=== PATIENT | female | born 1975 | race African-American/Black ===

== ENCOUNTER → 2017-11-20 | Outpatient (CLI) | payer MEDICARE, OTHER ==
--- NOTE | 2017-11-20 15:20 | NM ---
EXAMINATION TYPE: NM hepatobiliary w CCK DATE OF EXAM: 11/20/2017 COMPARISON: NONE HISTORY: Epigastric pain. TECHNIQUE: After the intravenous administration of 4.92 mCi Tc 99m Mebrofenin hepatobiliary scintigra phy is performed. Immediate images post injection. FINDINGS: There is satisfactory initial accumulation of tracer by the liver. The gallbladder is visualized wit hin 6 minutes. The small bowel activity is noted within 56 minutes. At one hour CCK was administere d, patient was injected with 2.8 mcg of Kinevac, and gallbladder ejection fraction is calculated at 8 9 %, hypercontractile. Therefore there is no scintigraphic evidence of cystic or common bile duct ob struction to suggest acute cholecystitis or gallbladder dyskinesia. IMPRESSION: 1. No scintigraphic evidence of acute or chronic cholecystitis. 2. Hypercontractile gallbladder with elevated ejection fraction of 89%.
== END ==
LOC: RADNMMAIN 12:55
PROVIDERS: ATTEND Surgery
DX: R93.3 Abnormal findings on diagnostic imaging of other parts of digestive tract (principal)
CPT/HCPCS: 78227; A9537; J2805

== ENCOUNTER → 2017-11-25 | Outpatient (CLI) | payer MEDICARE, OTHER ==
[2017-11-25 10:30] LABS: Basophils % (A) 0 %; Eosinophils % (A) 1 %; HCT 43.1 % (34.0-46.0); HGB 13.7 gm/dL (11.4-16.0); Lymphocytes % (A) 32 %; MCH 26.1 pg (25.0-35.0); MCHC 31.8 g/dL (31.0-37.0); MCV 82.1 fL (80.0-100.0); Mean Platelet Volume 7.4; Monocytes # (A) 0.2 k/uL (0-1.0); Monocytes % (A) 7 %; Neutrophils # (A) 1.7 k/uL (1.3-7.7); Neutrophils % (A) 57 %; Platelet Count 211 k/uL (150-450); RBC 5.26 m/uL (3.80-5.40); RDW 14.5 % (11.5-15.5)
[2017-11-25 11:06] LABS: Potassium 4.4 mmol/L (3.5-5.1)
== END | disposition home or self-care (01) ==
LOC: LABPAT 09:56
PROVIDERS: ATTEND Obstetrics & Gynecology Obstetrics
DX: Z01.812 Encounter for preprocedural laboratory examination (principal); D64.9 Anemia, unspecified; D25.9 Leiomyoma of uterus, unspecified; N92.0 Excessive and frequent menstruation with regular cycle; I10 Essential (primary) hypertension
CPT/HCPCS: 36415; 80051; 82565; 84520; 85025; 87077; 87086; 87186

== ENCOUNTER 2017-12-03 05:47 | Day surgery (SDC) | payer MEDICARE, OTHER ==
[2017-11-25 12:30] VITALS: BMI 48.4
--- NOTE | 2017-12-02 14:26 | HP ---
HISTORY AND PHYSICAL SURGERY: 12/03/2017. HPI: This is a very pleasant 42-year-old female that presents with complaints of pain in the midline of her pelvis. She states her periods are regular every month with a heavy flow lasting 5+ days. She denies breakthrough bleeding midcycle. She does note mild dysmenorrhea. She is receiving iron infusion secondary to her heavy menstrual bleeding. PAST MEDICAL HISTORY: 1. Anemia. 2. Emphysema. 3. Hypertension. PAST SURGICAL HISTORY: 1. done in 1993. 2. Femur repair in 1995. MEDICATION LIST: Please see chart. FAMILY HISTORY: Significant for mother with bladder cancer. Father with hypertension and mental illness. 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 She states her flow is heavy enough at this time to be anemic and she is receiving iron transfusions for this. She has 1 child, which was a done in 1993. SOCIAL HISTORY: She is a minimal drinker and states she does smoke about a quarter of a pack per day of cigarettes. REVIEW OF SYSTEMS: She denies any breast concerns. GI: She denies nausea, vomiting, diarrhea, constipation, or abdominal pain. GENITOURINARY: She admits to heavy menstrual bleeding. She denies any urinary urgency, frequency, dysuria, or incontinence symptoms. PHYSICAL EXAM: She is a well-nourished, well-developed, alert female. Her abdomen is soft with an enlarged uterus palpated. Bowel sounds are normal. : The external vaginal anatomy is normal for age. The vaginal mucosa is pink and well rugated. The cervix is slightly displaced secondary to enlarged uterus with known fibroid. Uterus feels approximately 14 week size. On pelvic exam, no adnexal masses are palpated, but exam is difficult secondary to body habitus and size of the uterus. ASSESSMENT: 1. Menorrhagia. 2. Fibroid uterus. Ultrasound was completed on October 31 revealing an enlarged 13 cm uterus with 2 fundal fibroids, one 5 cm and one 4 cm. 3. Anemia. PLAN: Robotic-assisted vaginal hysterectomy with ovarian conservation should these ovaries look normal. It is discussed bilateral salpingectomy in addition. Diagnostic cystoscopy will be performed to evaluate the bladder at the end of the procedure. Risks were reviewed with the patient including, but not limited to infection, bleeding, damage to bladder, bowel, ureteric injury. Patient states understanding of these risks and wished to proceed with surgery. MMODL / IJN: [id number] /
[~2017-12-03 05:47] MED LIST: DEXAMETHASONE SOD PHOSPHATE 10 MG/ML 1 ML VIAL IV ONE; HEPARIN SODIUM,PORCINE 5,000 UNIT/ML 1 ML VIAL SQ ONE; LIDOCAINE 1% 20 ML VIAL (10MG/ML) FOR IV START INTRADERMA PRN; MIDAZOLAM 2 MG/2 ML VIAL IV PRN; ONDANSETRON 4 MG/2 ML VIAL IVP ONE
[2017-12-03] MEDS ORDERED: LIDOCAINE 1% 20 ML VIAL (10MG/ML) FOR IV START INTRADERMA ONE (07:00)
[2017-12-03] MEDS: LACTATED RINGERS 1,000 ML IV SCH ×3 (07:00→22:21)
[2017-12-03] MEDS: ACETAMINOPHEN IV (For NPO) 1,000 MG in EMPTY BAG 1 BAG IVPB ONE ×2 (07:05→07:47)
[2017-12-03] MEDS ORDERED: fentaNYL (PF) 50 MCG/ML 2 ML AMP ONE (07:49)
[2017-12-03] MEDS ORDERED: GLYCOPYRROLATE 0.2 MG/ML 2 ML VIAL ONE (07:49)
[2017-12-03] MEDS ORDERED: KETOROLAC 30 MG/ML 1 ML VIAL ONE (07:49)
[2017-12-03] MEDS ORDERED: HYDROmorphone (PF) 1 MG/ML ONE (07:49)
[2017-12-03] MEDS ORDERED: LIDOCAINE 1% INJ 10MG/ML (20 ML MDV) ONE (07:49)
[2017-12-03] MEDS ORDERED: PROPOFOL 10 MG/ML 20 ML VIAL IV ONE (07:49)
[2017-12-03] MEDS ORDERED: NEOSTIGMINE 1 MG/ML 10 ML VIAL ONE (07:49)
[2017-12-03] MEDS ORDERED: SUCCINYLCHOLINE CHLORIDE 100 MG/5 ML SYR IV ONE (07:49)
[2017-12-03] MEDS ORDERED: MORPHINE SULFATE 10 MG/ML SYRINGE ONE (07:49)
[2017-12-03] MEDS ORDERED: MIDAZOLAM 2 MG/2 ML VIAL ONE (07:49)
[2017-12-03] MEDS ORDERED: ROCURONIUM BROMIDE 10 MG/ML 10 ML VIAL IV ONE (07:49)
--- NOTE | 2017-12-03 07:49 | P.GSHP ---
History of Present Illness H&P Date: 12/03/17 Chief Complaint: Incarcerated umbilical hernia This a 42-year-old female who presents today for laparoscopic robotic-assisted repair of incarcerated umbilical hernia. Patient will be undergoing a robotic- assisted hysterectomy by Dr. Sanchez as well. Patient has had complaints of periumbilical pain for several months. She has a 4 cm incarcerated umbilical hernia. Past Medical History Past Medical History: COPD, Fibromyalgia, Hypertension, Rheumatoid Arthritis (RA ) Additional Past Medical History / Comment(s): Sjogren's, not currently taking bp medication, iron deficient anemia, chronic back pain History of Any Multi-Drug Resistant Organisms: None Reported Past Surgical History: Section, Orthopedic Surgery Additional Past Surgical History / Comment(s): ORIF left femur Past Anesthesia/Blood Transfusion Reactions: No Reported Reaction Smoking Status: Current every day smoker - Past Family History Mother Family Medical History: Cancer Medications and Allergies Home Medications Medication Instructions Recorded Confirmed Type Aspirin/Acetaminophen/Caffeine 1 each PO BID PRN 11/25/17 11/25/17 History [Excedrin Extra Strength Caplet] Cetirizine HCl [Zyrtec] 20 mg PO DAILY 11/25/17 11/25/17 History Gabapentin [Neurontin] 100 - 300 mg PO HS 11/25/17 11/25/17 History Hydroxychloroquine Sulfate 200 mg PO BID 11/25/17 11/25/17 History [Plaquenil] Ibuprofen [Advil] 200 mg PO Q6HR PRN 11/25/17 11/25/17 History Naproxen Sodium [Aleve] 220 mg PO BID PRN 11/25/17 11/25/17 History Venlafaxine HCl [Effexor XR] 150 mg PO DAILY 11/25/17 11/25/17 History busPIRone HCL 10 mg PO BID 11/25/17 11/25/17 History cycloSPORINE 0.05% OPHTH SOLN 1 applicator BOTH EYES Q12H 11/25/17 11/25/17 History [Restasis] diphenhydrAMINE [Benadryl] 25 mg PO HS PRN 11/25/17 11/25/17 History tiZANidine [Zanaflex] 4 mg PO BID PRN 11/25/17 11/25/17 History Allergies Allergy/AdvReac Type Severity Reaction Status Date / Time No Known Allergies Allergy Verified 12/03/17 06:13 Surgical - Exam Vital Signs Temp Pulse Resp BP Pulse Ox 99.4 F 93 16 145/80 98 12/03/17 06:36 12/03/17 06:36 12/03/17 06:36 12/03/17 06:36 12/03/17 06:36 Morbid obesity with BMI 48 - General well developed, no distress - Eyes PERRL - ENT normal pinna - Neck no masses - Respiratory normal expansion - Cardiovascular Rhythm: regular - Abdomen 4 cm incarcerated umbilical hernia Abdomen: soft, non tender Assessment and Plan Assessment: Incarcerated buckle hernia. We'll perform laparoscopic robotic-assisted repair.
[2017-12-03] MEDS ORDERED: BUPIVACAIN-EPI 0.5%-1:200,000 30 ML VIAL SQ ONE ×2 (08:57→11:09)
--- NOTE | 2017-12-03 10:46 | P.OP ---
Date of Procedure: 12/03/17 Preoperative Diagnosis: enlarged uterus, fibroids, heavy menstrual bleeding, anemia Postoperative Diagnosis: same Procedure(s) Performed: Robotic-assisted vaginal hysterectomy, bilateral salpingectomy, diagnostic cystoscopy Anesthesia: DORCAS Surgeon: Karly Sanchez Home Care Nurse #1: Fidel Carreno Estimated Blood Loss (ml): 50 IV fluids (ml): 800 Urine output (ml): 300 Pathology: other (Uterus, cervix, left ovary and fallopian tube, multiple fibroids) Condition: stable Disposition: PACU Indications for Procedure: Heavy menstrual bleeding with anemia multiple uterine fibroids Operative Findings: Grossly enlarged uterus with multiple fibroids noted left ovary with multiple cysts closely adherent to the uterus, cystoscopy revealing normal findings Description of Procedure: Patient was seen in the preoperative area and informed consent was obtained once again she was counseled on the risks of surgery including but not limited to infection, bleeding, bladder damage, injury to bowel, ureteric injury. Patient stated understanding and informed consent was obtained patient was then taken back to the operating suite where general anesthesia was obtained without difficulty by the anesthesia department. She was prepped and draped in the normal sterile fashion in the dorsal lithotomy position. A weighted speculum posterior vaginal vault and the anterior lip of the cervix was visualized and grasped with single-tooth tenaculum. Prior to this a Jeong catheter was placed under sterile technique. At this point the endocervical canal was then dilated to be carried her medically was advanced into the endometrial cavity as a means to manipulate the uterus throughout the procedure. The balloon was insufflated with 10 mL of air and the cervical cap was placed snugly against the cervix all instrument removed and the patient's vaginal vault other than the V care and attention was turned to the patient's abdomen 2 finger breaths above the umbilicus a small skin incision is made through this incision the Veress needle was placed once the Veress needle was deemed to be in the appropriate position with a drop in CO2 pressure with insufflation of CO2 gas CO2 insufflation was allowed to occur. A proximally 3 L of gas was used to obtain pneumoperitoneum. At this time the incision was elongated to 12 mm a 12 mm trocar and sleeve is placed through the incision and toward the pneumoperitoneum under direct visualization of the laparoscope. The above noted findings were then visualized the additional port sites were then placed in the usual fashion to 10 cm lateral and 47 m inferior to the midline port these are 8 mm ports operative ports and the da Diann machine. In the left upper quadrant 12 mm trocar and sleeve is placed under direct visualization. At this point the da Diann robot was docked in the usual fashion the operative arms are then placed in the right arm and the monopolar scissors and the left arm is the bipolar forceps. Attention is then turned to the patient's left infundibulopelvic ligament which was visualized quite distally and proximally and then divided, hemostasis was appreciated this continued through the broad toward the round which was coagulated distally and proximally and then divided a thick adhesion was then noted from the anterior abdominal wall this was then taken down sharply hemostasis was appreciated throughout. Attention was then turned to the patient's right utero-ovarian ligament which was visualized regular distally and proximal main divided this continued through the broad toward the round which was quite distally and proximally and then divided. Hemostasis was appreciated throughout. The bladder flap from the right was then created using sharp and blunt dissection. The ascending branch of the uterine artery was visualized regular distally proximal plan divided. Hemostasis was appreciated. This was then repeated on the opposite side with good hemostasis once again. At this point the only remaining attachment was a vaginal attachment therefore colpotomy incision was made no cervical vaginal fashion at this time given the size of the uterus the uterus was dissected into 3 large pieces and delivered through the uterine cavity. On inspection the patient's vaginal cuff no bleeding was noted and it was closed in the usual fashion with 0 Vicryl in a [id number] suture 4. Attention then turned to the patient's Jeong which was removed without difficulty and a cystoscopy was performed. The cystoscope was placed through the urethra toward the bladder bladder bubble was noted in both ureteral orifices were noted to be effluxing clear yellow urine. Attention was then turned to the patient's abdomen the camera port and the right umbilical port were then closed with 4-0 Vicryl in a subcuticular fashion. The other ports remained secondary to Dr. Pompa entering the operating suite to repair and umbilical hernia further details on his operation please see the operative report. For my portion of case WERE correct 2 patient tolerated procedure well
[2017-12-03] MEDS ORDERED: Acetaminophen-Codeine 300-30mg TAB PO PRN (10:48)
--- NOTE | 2017-12-03 11:56 | P.OP ---
Date of Procedure: 12/03/17 Preoperative Diagnosis: Incarcerated umbilical hernia Postoperative Diagnosis: Incarcerated umbilical hernia Procedure(s) Performed: Lap or scopic robotic-assisted repair of incarcerated umbilical hernia Anesthesia: DORCAS Surgeon: Gerry Escobar Estimated Blood Loss (ml): 5 Pathology: other (Hernia sac and incarcerated fat) Condition: stable Disposition: PACU Description of Procedure: The patient had a robotic-assisted hysterectomy performed by Dr. Christina. Please see her dictation for her portion procedure. I started my procedure at approximately 1105. A.m. Patient had already had several trochars placed. The 5 mm laparoscope was placed in the left periumbilical trocar site and then a 8 mm robotic trochars placed in the left and upper and lower quadrant. And then a 12 mm trochars placed in the left lateral position. The umbilical hernia site was seen. The patient was then docked the robot. Using the hook cautery the incarcerated fat and omentum was dissected free from the hernia. The fascial defect was then closed using 0-strata fix suture. the repair was then buttressed with ventral light ST mesh. This was secured with 2 OV lock suture. The patient was then undocked the robot. The needles were retrieved. The incarcerated fat was retrieved. The 12 mm trocar site was closed using a 0 Vicryl suture and the Johnny Silver suture passer. Trochars withdrawn. The skin was closed interrupted 3-0 Monocryl suture. Dermabond dressing was applied.
[2017-12-03] MEDS: HYDROmorphone 1 MG/ML 1 ML SYRINGE IVP ONE ×2 (12:25→12:30)
[2017-12-03] MEDS: fentaNYL (PF) 50 MCG/ML 2 ML AMP IV PRN ×2 (13:14→13:28)
[2017-12-03] MEDS ORDERED: IBUPROFEN IV 800 MG in SODIUM CHLORIDE 0.9% 250 ML IV ONE (13:30)
[2017-12-03] MEDS: VENLAFAXINE HCL ER 150 MG CAP PO SCH (16:04)
[2017-12-03] MEDS: SIMETHICONE 80 MG CHEWABLE PO SCH ×2 (16:36→21:39)
[2017-12-03] MEDS: HYDROcodone/APAP 5-325MG 1 EACH TAB PO PRN (18:12)
[2017-12-03] MEDS: busPIRone HCl 10 MG TAB PO SCH (21:38)
[2017-12-03] MEDS: HYDROXYCHLOROQUINE SULFATE 200 MG TAB PO SCH (21:39)
[2017-12-03] MEDS: IBUPROFEN 600 MG TAB PO PRN (22:18)
[2017-12-04] MEDS ORDERED: diphenhydrAMINE 25 MG CAP PO PRN (00:13)
[2017-12-04] MEDS: HYDROcodone/APAP 5-325MG 1 EACH TAB PO PRN ×4 (00:21→11:17)
[2017-12-04 02:23] VITALS: RESP 16; TEMP 98.5
[2017-12-04] MEDS: SIMETHICONE 80 MG CHEWABLE PO SCH (05:48)
[2017-12-04] MEDS ORDERED: ACETAMINOPHEN TAB 325 MG TAB PO PRN (07:40)
[2017-12-04 07:43] LABS: Basophils % (A) 0 %; Eosinophils # (A) 0.1 k/uL (0-0.7); Eosinophils % (A) 1 %; HCT 39.6 % (34.0-46.0); HGB 12.1 gm/dL (11.4-16.0); Hypochromasia Slight; Lymphocytes # (A) 1.1 k/uL (1.0-4.8); Lymphocytes % (A) 16 %; MCH 25.7 pg (25.0-35.0); MCHC 30.5 g/dL (31.0-37.0); MCV 84.3 fL (80.0-100.0); Mean Platelet Volume 7.3; Monocytes # (A) 0.5 k/uL (0-1.0); Monocytes % (A) 7 %; Neutrophils # (A) 5.1 k/uL (1.3-7.7); Neutrophils % (A) 74 %; Platelet Count 182 k/uL (150-450); RDW 14.2 % (11.5-15.5)
[2017-12-04 08:06] VITALS: BP 119/75; PULSE 76
[2017-12-04] MEDS: IBUPROFEN 600 MG TAB PO PRN (08:30)
[2017-12-04] MEDS: HYDROXYCHLOROQUINE SULFATE 200 MG TAB PO SCH (08:31)
[2017-12-04] MEDS: VENLAFAXINE HCL ER 150 MG CAP PO SCH (08:31)
[2017-12-04] MEDS: busPIRone HCl 10 MG TAB PO SCH (08:31)
--- NOTE | 2017-12-04 08:44 | P.DS ---
Providers Expected date of discharge: 12/04/17 Attending physician: Gerry Escobar Primary care physician: Rissa Sanchez - Discharge Diagnosis(es) (1) Fibroid uterus Current Visit: Yes Status: Acute (2) Umbilical hernia Current Visit: Yes Status: Acute Hospital Course: This is a 42-year-old woman who had symptomatic uterine fibroids and an incarcerated umbilical hernia. She was admitted by Dr. Owens for a robotic- assisted laparoscopic assisted vaginal hysterectomy with bilateral salpingo- oophorectomy. Umbilical hernia repair was performed by Dr. Pompa at the same time. Please see the operative report for findings. The patient's postoperative course was marked by headache and poor pain control on the evening of postoperative day 0. By postoperative day #1 her headache had resolved and her pain was better controlled with oral pain medications. She was able to ambulate and void without difficulty. Her postoperative day #1 labs were within normal limits. Her incisions appeared well healing and she had no active vaginal bleeding. She was therefore discharged home pending her tolerating a general diet and ambulating without difficulty. Procedures: Robotic-assisted laparoscopic assisted vaginal hysterectomy with bilateral salpingo-oophorectomy and cystoscopy. Repair of umbilical hernia. Patient Condition at Discharge: Good Plan - Discharge Summary Discharge Rx Participant: Yes New Discharge Prescriptions: No Action Ibuprofen [Advil] 200 mg PO Q6HR PRN PRN Reason: Pain Naproxen Sodium [Aleve] 220 mg PO BID PRN PRN Reason: Pain cycloSPORINE 0.05% OPHTH SOLN [Restasis] 1 applicator BOTH EYES Q12H busPIRone HCL 10 mg PO BID Gabapentin [Neurontin] 100 - 300 mg PO HS Cetirizine HCl [Zyrtec] 20 mg PO DAILY diphenhydrAMINE [Benadryl] 25 mg PO HS PRN PRN Reason: allergies tiZANidine [Zanaflex] 4 mg PO BID PRN PRN Reason: Muscle Spasm Venlafaxine HCl [Effexor XR] 150 mg PO DAILY Hydroxychloroquine Sulfate [Plaquenil] 200 mg PO BID Aspirin/Acetaminophen/Caffeine [Excedrin Extra Strength Caplet] 1 each PO BID PRN PRN Reason: Pain Discharge Medication List Aspirin/Acetaminophen/Caffeine [Excedrin Extra Strength Caplet] 1 each PO BID PRN 11/25/17 [History] Cetirizine HCl [Zyrtec] 20 mg PO DAILY 11/25/17 [History] Gabapentin [Neurontin] 100 - 300 mg PO HS 11/25/17 [History] Hydroxychloroquine Sulfate [Plaquenil] 200 mg PO BID 11/25/17 [History] Ibuprofen [Advil] 200 mg PO Q6HR PRN 11/25/17 [History] Naproxen Sodium [Aleve] 220 mg PO BID PRN 11/25/17 [History] Venlafaxine HCl [Effexor XR] 150 mg PO DAILY 11/25/17 [History] busPIRone HCL 10 mg PO BID 11/25/17 [History] cycloSPORINE 0.05% OPHTH SOLN [Restasis] 1 applicator BOTH EYES Q12H 11/25/17 [ History] diphenhydrAMINE [Benadryl] 25 mg PO HS PRN 11/25/17 [History] tiZANidine [Zanaflex] 4 mg PO BID PRN 11/25/17 [History] Patient Instructions/Handouts: How to Use an Incentive Spirometer (DC) Discharge Disposition: HOME SELF-CARE
--- NOTE | 2017-12-04 12:40 | P.PN ---
Subjective Progress Note Date: 12/04/17 42-year-old female seen this morning on rounds. Patient is postop day one done on 03 of December laparoscopic robotic-assisted repair of incarcerated umbilical hernia patient had had a robotic-assisted hysterotomy by done December 03 Patient has been up ambulatory surgical dressing sites are dry abdomen nondistended soft surgical tenderness appropriate urinating with no difficulty Objective - Vital Signs Vital signs: Vital Signs Temp 98.5 F 12/04/17 08:05 Pulse 76 12/04/17 08:05 Resp 16 12/04/17 08:05 BP 119/75 12/04/17 08:05 Pulse Ox 98 12/04/17 00:00 Intake & Output 12/03/17 12/04/17 12/04/17 18:59 06:59 18:59 Intake Total 1900 1450 Output Total 660 700 300 Balance 1240 750 -300 Weight 136.078 kg Intake: IV 1900 1000 Lactated Ringers 1,000 ml 1000 @ 20 mls/hr IV .Q24H [facility] Rx#:[id number] Oral 450 Output: Urine 600 700 300 Uretheral (Jeong) 300 Estimated Blood Loss 60 Other: # Voids 1 - Exam GENERAL APPEARANCE: patient is alert, oriented, in no acute distress. Has been up ambulating in the unit pain medication effective for pain control VITAL SIGNS: Reviewed HEENT: Head is normocephalic and atraumatic. Pupils are equal and reactive. The nares are patent. Oropharynx is clear without lesions. NECK: Supple without lymphadenopathy. Traches midline. HEART: S1, S2. Regular rate and rhythm. Denying chest pain LUNGS: No crackles or wheezes are heard. Adequate air movement on room air ABDOMEN: Soft, obese mild surgical tenderness appropriate surgical dressing site dry, nondistended with good bowel sounds. No peritoneal signs. No palpable organomegaly or masses. Tolerating a diet urinating no difficulty passing gas no stool EXTREMITIES: Normal skin color and turgor. No cyanosis, rash, ulceration, clubbing or edema. Radial pedal pulses are 2/4 bilaterally. NEUROLOGICAL: No focal deficits. Strength and sensation are grossly intact. - Labs CBC & Chem 7: 12/04/17 07:00 Labs: Abnormal Lab Results - Last 24 Hours (Table) 12/04/17 Range/Units 07:00 MCHC 30.5 L (31.0-37.0) g/dL Assessment and Plan Assessment: Impression Enlarged uterus fibroid heavy menstrual bleeding with anemia suspect due to multiple uterine fibroids Robotic-assisted vaginal hysterectomy, bilateral salpingectomy, diagnostic cystoscopy done December 03 Robotic-assisted repair of incarcerated umbilical hernia Plan From a surgical perspective is felt to be appropriate to be discharged Follow-up office visit 1 week Pain control Defer to the timing of the discharge to the attending The above impression and plan of care have been discussed and directed by signing physician. Radha Swanson nurse practitioner acting as scribe for signing physician.
== END 2017-12-04 13:10 | disposition home or self-care (01) ==
LOC: OR 05:47 → 4FBP 13:03 → OR 12-04 13:10
PROVIDERS: ATTEND Surgery
DX: K42.0 Umbilical hernia with obstruction, without gangrene (principal); D25.9 Leiomyoma of uterus, unspecified; N80.0 Endometriosis of uterus; N83.12 Corpus luteum cyst of left ovary; N72 Inflammatory disease of cervix uteri; N92.0 Excessive and frequent menstruation with regular cycle; I10 Essential (primary) hypertension; J44.9 Chronic obstructive pulmonary disease, unspecified; M79.7 Fibromyalgia; M06.9 Rheumatoid arthritis, unspecified; M35.00 Sjogren syndrome, unspecified; G89.29 Other chronic pain; M54.9 Dorsalgia, unspecified; F17.210 Nicotine dependence, cigarettes, uncomplicated; D64.9 Anemia, unspecified; K21.9 Gastro-esophageal reflux disease without esophagitis; Z79.899 Other long term (current) drug therapy; E66.01 Morbid (severe) obesity due to excess calories; Z68.42 Body mass index [BMI] 45.0-49.9, adult
CPT/HCPCS: 85025; 88307; 88302; 58291; 49653; C1781; J2250; J1644; J1100; J2710; J2270; J0690; J2405; J2001; J3010; J1885; J1170; J0131; J0330; J1741; J2704; 86850; 86900; 86901

== ENCOUNTER → 2020-03-29 | Outpatient (CLI) | payer MEDICARE, OTHER ==
--- NOTE | 2020-03-30 10:51 | MR ---
EXAMINATION TYPE: MR ankle RT wo con DATE OF EXAM: 03/29/2020 COMPARISON: None. HISTORY: Pain swelling locking and clicking for over a year all per patient Standard multiplanar, multisequence MRI departmental protocol Multiplanar, multisequence images of the right ankle were acquired. FINDINGS: Distal Achilles tendon intact. Some heterogeneous increased signal distally is present with surrounding fluid including more focal fluid just anterior to the distal Achilles tendon sagittal im age 14. Small exostosis posterior superior calcaneus with mild osseous edema or increased T2 signal. Findings consistent with Stefan syndrome. Plantar fascia intact. Anterior extensor tendons are unremarkable. Peroneal tendons show some surrounding fluid near lateral malleolus without abnormal signal. Flexor t endons along posterior medial aspect of the ankle are intact. Surrounding fluid level of medial malle olus of the PT and FDL are noted. The anterior tibiofibular and the anterior talofibular ligaments are intact. Medial deltoid ligament is intact. Ankle mortise symmetry is maintained. There is some loss of normal sinus tarsi fat. There is subchondral cystic change in the anterior supe rior talus. Lisfranc joints show mild to moderate narrowing without significant spurring or edema. There is moder ate narrowing of the inferior calcaneal cuboid joint. No suspicious osseous edema. Small anterior chris ar joint effusion. Mild scattered subcutaneous edema throughout the hindfoot and midfoot deep structu res. IMPRESSION: 1. 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 2. 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 3. Mild to moderate hindfoot and midfoot arthropathy as detailed above. Areas of tenosynovitis. No te ndon or ligamentous tear.
== END | disposition home or self-care (01) ==
LOC: RADMRIMAIN 08:21
PROVIDERS: ATTEND Internal Medicine Rheumatology
DX: M19.071 Primary osteoarthritis, right ankle and foot (principal); M65.871 Other synovitis and tenosynovitis, right ankle and foot

== ENCOUNTER → 2020-07-05 | Outpatient (CLI) | payer MEDICARE, OTHER ==
--- NOTE | 2020-07-07 10:35 | MR ---
EXAMINATION TYPE: MR knee RT wo con DATE OF EXAM: 07/05/2020 COMPARISON: Plain film 06/28/2020 HISTORY: RT knee pain TECHNIQUE: Multiplanar, multisequence imaging of the right knee is performed without IV contrast. FINDINGS: MEDIAL MENISCUS: There is mild linear signal within the posterior horn medial meniscus may be related to some mild degenerative change. Internal type I tear is considered less likely. Anterior horn medi al meniscus appears intact. LATERAL MENISCUS: Anterior and posterior horns are intact without tear. CRUCIATE LIGAMENTS: The anterior and posterior cruciate ligaments are intact and unremarkable. COLLATERAL LIGAMENTS: The medial collateral ligament and lateral collateral ligament complex are inta ct. There is increased signal adjacent to the medial collateral ligament which could indicate underly ing strain. EXTENSOR MECHANISM: Visualized quadriceps and patellar tendons are intact. EFFUSION: There is a moderate joint effusion. POPLITEAL CYST: No popliteal/santo cyst. TRICOMPARTMENT SPACES: Mild narrowing of the medial and lateral compartment joint spaces may be prese nt. CARTILAGE: There is thinning of the articular cartilage of the medial and lateral compartments. BONE MARROW SIGNAL: No focal abnormal marrow signal is appreciated. OTHER: No additional significant abnormality is appreciated. IMPRESSION: 1. Degenerative change or possibly internal tear posterior horn medial meniscus. 2. Moderate joint effusion. 3. Increased signal adjacent to the medial collateral ligament may indicate underlying strain.
== END ==
LOC: RADMRIMAIN 11:35
PROVIDERS: ATTEND Orthopaedic Surgery
DX: M17.11 Unilateral primary osteoarthritis, right knee (principal)

== ENCOUNTER 2021-09-15 22:14 | Emergency (ER) | payer MEDICARE, OTHER ==
[2021-09-15 23:00] VITALS: BP 149/90; PULSE 91; RESP 16; TEMP 98.1
--- NOTE | 2021-09-15 23:37 | CT ---
EXAMINATION TYPE: CT brain maximilianoine wo con DATE OF EXAM: 09/15/2021 COMPARISON: HISTORY: Fall CT DLP: 1978.4 mGycm Automated exposure control for dose reduction was used. Images of the brain and cervical spine obtained with no contrast. Ventricles have normal size. There is no mass effect or midline shift. No sign of intracranial hemorr corry. The calvarium is intact. There is normal aeration of the mastoid sinuses. Skull base is intact. There is mild straightening of the cervical spine. There is anterior spurring at C4-5 and C5-6. Facet joints are intact. Skull base is intact. No fracture seen. IMPRESSION: Negative CT scan of the brain. Minimal left maxillary sinusitis with small mucous retention cyst note d. Minor degenerative spurring in the lower cervical spine. No fracture.
== END 2021-09-15 23:45 | disposition left against medical advice (07) ==
LOC: EC 22:14
DX: Z53.21 Procedure and treatment not carried out due to patient leaving prior to being seen by health care provider (principal)
CPT/HCPCS: 70450; 72125; 99499

== ENCOUNTER → 2021-10-04 | Outpatient (CLI) | payer MEDICARE, OTHER ==
--- NOTE | 2021-10-04 10:13 | MR ---
EXAMINATION TYPE: MR brain wo/w con DATE OF EXAM: 10/04/2021 COMPARISON: CT scan 09/15/2021 HISTORY: Headache, head trauma with mild concussion TECHNIQUE: Multiplanar, multisequence images of the brain and brainstem is performed without and with IV contras t, utilizing 14 mL intravenous Gadavist . FINDINGS: Exam limited by motion artifact. Diffusion weighted images demonstrate no evidence of a recent infarct or other diffusion abnormality. There is no extra-axial fluid collection or significant white matter signal abnormality. The ventr icular system and cisternal spaces are normal in size and appearance. The brain volume is age approp riate. Midline structures demonstrate normal morphology. The craniocervical junction appears within normal limits. Post contrast images demonstrate Nodular prominence of left MCA trifurcation. . The dural ve nous sinuses appear patent. Changes of mild chronic sinusitis and the globes are intact. IMPRESSION: 1. Nodular prominence of left MCA trifurcation. MRA belkofski of [place] recommended to assess for small aneurysm. 2. Changes of mild chronic sinusitis
== END | disposition home or self-care (01) ==
LOC: RADMRIMAIN 08:40
PROVIDERS: ATTEND Family Medicine
DX: S09.90XA Unspecified injury of head, initial encounter (principal); J32.9 Chronic sinusitis, unspecified
CPT/HCPCS: 70553; A9585

== ENCOUNTER 2022-05-02 15:06 | Emergency (ER) | payer MEDICARE, OTHER ==
[2022-05-02 15:16] VITALS: BP 145/86; PULSE 93; RESP 16; TEMP 98
[2022-05-02] MEDS ORDERED: DEXAMETHASONE SOD PHOSPHATE 10 MG/ML 1 ML VIAL IM STA (16:02)
[2022-05-02] MEDS ORDERED: HYDROcodone/APAP 5-325MG 1 EACH TAB PO STA (16:02)
--- NOTE | 2022-05-02 16:10 | ED ---
ENT HPI - General Chief complaint: Dental/Oral Stated complaint: Post Op Dental Pain Time Seen by Provider: 05/02/22 15:48 Source: patient, RN notes reviewed, old records reviewed Mode of arrival: ambulatory Limitations: no limitations - History of Present Illness Initial comments: 46-year-old female presents to the emergency room with complaints of left lower dental pain after excision of her wisdom teeth, left upper and lower week ago. Patient states that she did take her 5 days of antibiotics but continues to this pain. She is unable to reach her dentist so came to the emergency room for pain management. States that she has chills but no documented fever. She does have history diabetes, hypertension MD complaint: tooth pain (left lower tooth #17 ) -: week(s) (1) Severity scale (1-10): 10 Quality: constant Consistency: constant Improves with: none - Related Data Home Medications Medication Instructions Recorded Confirmed Aspirin/Acetaminophen/Caffeine 1 each PO BID PRN 11/25/17 11/25/17 [Excedrin Extra Strength Caplet] Cetirizine HCl [Zyrtec] 20 mg PO DAILY 11/25/17 11/25/17 Gabapentin [Neurontin] 100 - 300 mg PO HS 11/25/17 11/25/17 Hydroxychloroquine Sulfate 200 mg PO BID 11/25/17 11/25/17 [Plaquenil] Ibuprofen [Advil] 200 mg PO Q6HR PRN 11/25/17 11/25/17 Naproxen Sodium [Aleve] 220 mg PO BID PRN 11/25/17 11/25/17 Venlafaxine HCl [Effexor XR] 150 mg PO DAILY 11/25/17 11/25/17 busPIRone HCL 10 mg PO BID 11/25/17 11/25/17 cycloSPORINE 0.05% OPHTH SOLN 1 applicator BOTH EYES Q12H 11/25/17 11/25/17 [Restasis] diphenhydrAMINE [Benadryl] 25 mg PO HS PRN 11/25/17 11/25/17 tiZANidine [Zanaflex] 4 mg PO BID PRN 11/25/17 11/25/17 Previous Rx's Medication Instructions Recorded Clindamycin [Cleocin] 450 mg PO Q8H 10 Days #90 cap 05/02/22 Allergies Allergy/AdvReac Type Severity Reaction Status Date / Time No Known Allergies Allergy Verified 12/03/17 06:13 Review of Systems ROS Statement: Those systems with pertinent positive or pertinent negative responses have been documented in the HPI. ROS Other: All systems not noted in ROS Statement are negative. Past Medical History Past Medical History: Diabetes Mellitus, Hyperlipidemia, Hypertension, Osteoarthritis (OA) Additional Past Medical History / Comment(s): rheumatoid arthritis History of Any Multi-Drug Resistant Organisms: None Reported Past Surgical History: Hysterectomy Additional Past Surgical History / Comment(s): HERNIA MESH- UMBILICAL Past Psychological History: No Psychological Hx Reported Smoking Status: Current every day smoker Past Alcohol Use History: Occasional Past Drug Use History: Marijuana General Exam Limitations: no limitations General appearance: alert, in no apparent distress Head exam: Present: atraumatic Eye exam: Present: normal appearance. Absent: scleral icterus, conjunctival injection, periorbital swelling, periorbital tenderness ENT exam: Present: mucous membranes moist Expanded Mouth exam: Present: muffled voice, tongue normal, tongue elevation. Absent: drooling, trismus Teeth exam: Present: dental tenderness # (Tooth socket #17 erythema and exudate, abscess ulcer along left lateral side of tongue) Respiratory exam: Absent: respiratory distress, accessory muscle use Cardiovascular Exam: Present: regular rate Neurological exam: Present: alert, oriented X3, normal gait Psychiatric exam: Present: normal affect, normal mood Skin exam: Present: warm, dry, normal color. Absent: cyanosis, diaphoretic Course Vital Signs 05/02/22 15:12 Temperature 98 F Pulse Rate 93 Respiratory 16 Rate Blood Pressure 145/86 O2 Sat by Pulse 99 Oximetry Medical Decision Making - Medical Decision Making Patient will be prescribed clindamycin 150 mg 3 times a day for 7 days. No difficulty swallowing, speech is clear. No evidence of a drainable abscess or Cedrick's angina. Patient denies any sore throat. Complaining of pain to the left side of her face. She was given a Decadron shot for inflammation and pain along with norco. Directed to followup with her dentist in [place] next week. Case discussed with Dr. Valerio. Was pt. sent in by a medical professional or institution? @ -no Did you speak to anyone other than the patient for history? @ -no Did you review nursing and triage notes? @ -yes i agree Were old charts reviewed? @ -no Differential Diagnosis? @ -dental abscess, ludwigs angina, peritonsillar abscess, bleeding dental socket this is not an all inclusive list What testing was considered but not performed? (CT, X-rays, U/S, labs)? Why? @ no What meds were considered but not given? Why? @ -no Did you discuss the management of the patient with other professionals? @ -no Did you reconcile home meds? @ -no Was smoking cessation discussed for >3mins.? @ -no Was critical care preformed (if so, how long)? @ -no Were there social determinants of health that impacted care today? How? (Homelessness, low income, unemployed, alcoholism, drug addiction, transportation, low edu. Level, literacy, decrease access to med. care, usp, rehab)? @ -none Was there de-escalation of care discussed even if they declined? (Discuss DNR or withdrawal of care, Hospice)? @ -no What co-morbidities impacted this encounter? (DM, HTN, Smoking, COPD, CAD, Cancer, CVA, Hep., AIDS, mental health diagnosis, sleep apnea, morbid obesity)? @ -Diabetes, hypertension Was patient admitted / discharged? @ -Discharged Undiagnosed new problem with uncertain prognosis? @ -[none] Drug Therapy requiring intensive monitoring for toxicity (Heparin, Nitro, Insulin, Cardizem)? @ -no Were any procedures done? @ -no Diagnosis/symptom? @ -Dental abscess, post extraction Acute, or Chronic, or Acute on Chronic? @ -Acute Uncomplicated (without systemic symptoms) or Complicated (systemic symptoms)? @ -Uncomplicated Side effects of treatment? @ -[none] Exacerbation, Progression, or Severe Exacerbation] @ -[no] Poses a threat to life or bodily function? @ -[no] Disposition Clinical Impression: Dental abscess Disposition: HOME SELF-CARE Condition: Good Instructions (If sedation given, give patient instructions): Dental Abscess (ED) Additional Instructions: Take Tylenol and Motrin as needed for pain and discomfort. Take antibiotics as prescribed. Follow up with dentist as soon as possible for reevaluation. Return to the emergency room with any new or concerning symptoms Prescriptions: Clindamycin [Cleocin] 450 mg PO Q8H 10 Days #90 cap Is patient prescribed a controlled substance at d/c from ED?: No Referrals: Rissa Sanchez DO [Primary Care Provider] - 1-2 days Time of Disposition: 16:10
== END 2022-05-02 16:43 | disposition home or self-care (01) ==
LOC: EC 15:06
DX: L02.91 Cutaneous abscess, unspecified (principal); E11.9 Type 2 diabetes mellitus without complications; I10 Essential (primary) hypertension; M19.90 Unspecified osteoarthritis, unspecified site; F17.200 Nicotine dependence, unspecified, uncomplicated; F12.90 Cannabis use, unspecified, uncomplicated; Z79.82 Long term (current) use of aspirin; Z79.899 Other long term (current) drug therapy
CPT/HCPCS: 99282; 96372; J1100

== ENCOUNTER → 2022-09-19 | Outpatient (CLI) | payer MEDICARE, OTHER ==
--- NOTE | 2022-09-19 10:54 | USB ---
Reason for Exam: Clinical finding. Patient History: Menarche at age 11. First Full-Term at age 18. Risk Values: Cynthia 5 year model risk: 1.0%. NCI Lifetime model risk: 9.0%. Technique: Method: Whole Breast Handheld. Findings: The whole breast of the right breast, the axilla of the right breast and the retroareolar of the right breast were scanned. A complete US of all four quadrants of the breast , axilla, and retro-areolar region were reviewed. No solid or cystic masses are identified. Some mild dermal thickening is noted. There is diffuse heterogeneous breast parenchyma with difficulty penetrating. *At the 7:00 position, 8 cm from the nipple, there is a discrete irregular mass measuring 1.8 x 1.5 x 1.3 cm containing some calcifications. Tissue sampling is recommended. Mild duct ectasia noted behind the nipple. *There is a thickened lymph node within the right axilla measuring 1.1 x 0.9 x 0.7 cm. Cortex is thickened up to 5 mm. Tissue sampling recommended. Overall Assessment: Highly suggestive of malignancy, BI-RAD 5 Management: Ultrasound Core Biopsy of the right breast. Stereotactic Core Biopsy of the right breast. Possible inflammatory breast cancer. Ultrasound core biopsy 7:00 lesion as well as the nonenlarged but thickened axillary node. Subsequent stereotactic biopsy of right breast microcalcifications. Consideration can be given to the 2 farthest sites depending on clip position after ultrasound biopsy. Electronically signed and approved by: Dawn Aguilar M.D. Radiologist
--- NOTE | 2022-09-19 12:17 | MM ---
Reason for Exam: Clinical finding. Indicated Problems: Lump or thickening of the right side for 1 Month(s). Patient History: Menarche at age 11. First Full-Term at age 18. Last menstrual period: Risk Values: Cynthia 5 year model risk: 1.0%. NCI Lifetime model risk: 9.0%. Prior Study Comparison: No prior studies available for comparison. Tissue Density: The breast tissue is heterogeneously dense. This may lower the sensitivity of mammography. Findings: Analyzed By CAD. Abnormal medial inferior skin thickening right breast. Extensive asymmetric trabecular thickening and irregularity throughout the anterior to middle depth right breast with associated pleomorphic calcifications spanning up to 11.1 cm primarily from 6:00 to 10:00. Low-density circumscribed oval nodule lateral left breast suggestive of a small cyst or intramammary lymph node. Otherwise, no discrete abnormality is seen. Overall Assessment: Incomplete: need additional imaging evaluation, BI-RAD 0 Management: Diagnostic Breast Ultrasound of the right breast. Electronically signed and approved by: Dawn Aguilar M.D. Radiologist
== END | disposition home or self-care (01) ==
LOC: RADMAMWWP 09:51
PROVIDERS: ATTEND Family Medicine
DX: N63.10 Unspecified lump in the right breast, unspecified quadrant (principal); N64.4 Mastodynia
CPT/HCPCS: 77066; 76641; G0279; 77062

== ENCOUNTER → 2022-09-27 | Day surgery (SDC) | payer MEDICARE, OTHER ==
--- NOTE | 2022-10-03 09:26 | MM ---
Risk Values: Cynthia 5 year model risk: 1.0%. NCI Lifetime model risk: 9.1%. Prior Study Comparison: 09/19/2022 Bilateral MG 3D diag mammo w/cad [facility], [facility]. Pathology Description: Approach: CC FA Cores: 6 Skin Nicks: 1 Gauge: 9 Pathology Description: Marker Left Behind. Specimen Radiograph. Calcium Found: Yes Approach: CC FA Needle Type: Eviva Cores: 6 Skin Nicks: 1 Gauge: 9 The procedure of stereotactic guided core biopsy was explained to the patient. Benefits, alternatives, and risks were discussed. An informed consent was then obtained. Timeout was performed. Superior craniocaudal approach was utilized for both areas biopsied. Piano Sounding [employer] Matcher calcifications were targeted away from the ultrasound biopsy site. A vacuum assisted biopsy device was used to obtain multiple core samples. Sample 1 lateral right breast: Contains multiple calcifications. Sample 2 anterior right breast: Contains multiple calcifications. Core markers were placed at each location. The patient tolerated the procedure well without any immediate complication. The patient was kept in the radiology department for short stay after the procedure and then discharged home in stable condition. Post biopsy mammogram shows the clip to appear in satisfactory position relative to the targeted area of concern on the preprocedure images. Impression: 1. Successful stereotactic core biopsy peripheral calcifications away from the ultrasound core biopsy site. 2. With a volume of lidocaine utilized, ultrasound core of the suspicious right axillary lymph node was deferred at this time. Patient is currently scheduled to complete this portion of the workup. Pathology Results: Result: Malignant, Invasive ductal carcinoma. A. RIGHT BREAST, SITE 1 LATERAL, CORE BIOPSY: Invasive moderately differentiated ductal carcinoma (Grade 2) and grade 2-3 DCIS with comedo necrosis and calcifications. See Surgical Pathology Cancer Case Summary and Comment. B. RIGHT BREAST, SITE 2 ANTERIOR, CORE BIOPSY: Grade 2-3 ductal carcinoma in situ (DCIS) with comedo necrosis and calcifications. See Surgical Pathology Cancer Case Summary and Comment. Overall Assessment: Malignant Management: Surgical Consultation of the right breast. Electronically signed and approved by: Erwin Wright D.O. Radiologis
== END ==
LOC: RADMAMWWP 08:03
PROVIDERS: ATTEND Surgery
DX: D05.11 Intraductal carcinoma in situ of right breast (principal)
CPT/HCPCS: 88305; 88342; 88341; 19081; 19082; A4648

== ENCOUNTER → 2022-09-27 | Day surgery (SDC) | payer MEDICARE, OTHER ==
--- NOTE | 2022-10-03 09:12 | MM ---
Reason for Exam: Post Procedure Mammogram. Patient History: Menarche at age 11. First Full-Term at age 18. Risk Values: Cynthia 5 year model risk: 1.0%. NCI Lifetime model risk: 9.0%. Prior Study Comparison: 09/19/2022 Bilateral MG 3D diag mammo w/cad [facility], [facility]. Tissue Density: Right: The breast tissue is heterogeneously dense. This may lower the sensitivity of mammography. Pathology Description: Location: 7 o'clock, lower outer quadrant. Marker Left Behind. Needle Type: Mammotome Cores: 5 Skin Nicks: 1 Gauge: 13 The procedure of ultrasound guided core biopsy was explained to the patient. Benefits, alternatives, and risks were discussed. An informed consent was then obtained. A timeout was performed. The patient was placed in supine positioning for imaging and for the procedure. The overlying skin was prepped and draped in usual sterile fashion. Maximum barrier technique was utilized. Lidocaine was used as anesthetic into the skin and subcutaneous tissue up to area of concern in the right breast. A small skin ruthie was made with surgical scalpel. Under ultrasound guidance, a 12-gauge vacuum assisted biopsy gun device was used to obtain 5 core samples. A biopsy clip was left in lesion. Hydromark coil core marker was placed. The patient tolerated the procedure well without any immediate complication. The patient was kept in the radiology department for short stay after the procedure and then discharged home in stable condition. Postprocedure mammogram: The patient was transferred to mammography for physician ordered post procedure mammogram for clip placement verification. Clip was present in the expected region. Impression: Successful ultrasound guided core biopsy of area of concern in the right breast, full pathology results to follow. Recommendations: 1. Recommendations are pending pathology results. Pathology Results: Result: Malignant, Invasive ductal carcinoma. RIGHT BREAST, 7:00, ULTRASOUND GUIDED NEEDLE CORE BIOPSY: Invasive moderately differentiated adenocarcinoma (Grade 2). See Surgical Pathology Cancer Case Summary and Comment. Overall Assessment: Malignant Assessment: MG diagnostic mammo RT wo CAD - Right: Known biopsy proven malignancy, BI-RAD 6. Management: Surgical Consultation of the right breast. Electronically signed and approved by: Erwin Wright D.O. Radiologis
== END ==
LOC: RADUSWWP 08:05
PROVIDERS: ATTEND Surgery
DX: C50.911 Malignant neoplasm of unspecified site of right female breast (principal)
CPT/HCPCS: 88305; 88342; 88341; 77065; 19083; A4648

== ENCOUNTER → 2022-10-02 | Outpatient (CLI) | payer MEDICARE, OTHER ==
[2022-10-02 11:58] VITALS: BP 114/86; PULSE 99; RESP 17; TEMP 98.3
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
== END ==
LOC: WWCWWP 11:09
PROVIDERS: ATTEND Surgery
DX: D05.11 Intraductal carcinoma in situ of right breast (principal); M06.9 Rheumatoid arthritis, unspecified; F32.A Depression, unspecified; I10 Essential (primary) hypertension; F41.9 Anxiety disorder, unspecified; E78.00 Pure hypercholesterolemia, unspecified; G57.53 Tarsal tunnel syndrome, bilateral lower limbs; E11.9 Type 2 diabetes mellitus without complications; H04.129 Dry eye syndrome of unspecified lacrimal gland; M79.7 Fibromyalgia; Z17.0 Estrogen receptor positive status [ER+]; Z79.1 Long term (current) use of non-steroidal anti-inflammatories (NSAID); Z80.0 Family history of malignant neoplasm of digestive organs; F17.200 Nicotine dependence, unspecified, uncomplicated; Z79.82 Long term (current) use of aspirin; Z79.84 Long term (current) use of oral hypoglycemic drugs

== ENCOUNTER → 2022-10-11 | Day surgery (SDC) | payer MEDICARE, OTHER ==
--- NOTE | 2022-10-17 13:26 | MM ---
Reason for Exam: Post Procedure Mammogram. Patient History: Menarche at age 11. First Full-Term at age 18. Breast cancer, right, age 47. Breast cancer, right, age 47. 09/27/2022, MG stereo VAD BX addl RT on the Right side. 09/27/2022, Malignant MG stereo VAD BX RT on the right side. 09/27/2022, Malignant US biopsy breast VAD RT on the right side. Prior Study Comparison: 09/19/2022 Bilateral MG 3D diag mammo w/cad LALI, [facility]. 09/27/2022 Right MG diagnostic mammo RT wo CAD, [facility]. Tissue Density: Right: The breast tissue is heterogeneously dense. This may lower the sensitivity of mammography. Pathology Description: Location: axillary tail. Marker Left Behind. Needle Type: Celero Cores: 2 Skin Nicks: 1 The procedure of ultrasound guided core biopsy was explained to the patient. Benefits, alternatives, and risks were discussed. An informed consent was then obtained. The patient was placed in supine positioning for imaging and for the procedure. Preprocedure ultrasound redemonstrates a few suspicious prominent lymph nodes with cortical thickening in the right axillary region. The overlying skin was prepped and draped in usual sterile fashion. Lidocaine is used as anesthetic into the skin and subcutaneous tissue. Lidocaine with epinephrine is used anesthetic into the deeper tissue up to area of concern in the right breast. Under ultrasound guidance, a vacuum assisted biopsy gun device was used to obtain 2 core samples. Following this, a biopsy clip was left in lesion. The patient tolerated the procedure well without any immediate complication. The patient was kept in the radiology department for short stay after the procedure and then discharged home in stable condition. Postprocedure mammogram: The patient was transferred to mammography for physician ordered post procedure mammogram for clip placement verification. Due to position high in the axilla, mammogram is unsuccessful in confirming satisfactory clip deployment. Impression: Successful ultrasound guided core biopsy of area of concern in the right breast axillary region, full pathology results to follow. Intermediate to high index of suspicion noted at time of procedure. Pathology Results: Result: Malignant, Metastatic cancer to the breast. RIGHT AXILLA, CORE BIOPSY: Lymph node positive for metastatic ductal breast carcinoma. See note. Notes Sections examined show a lymph node involved by metastatic non-small cell carcinoma. A panel of immunoperoxidase stains performed and evaluated with appropriate positive controls shows the tumor to be immunohistochemically positive for GATA3 and E-Cadherin. The results confirm the diagnosis of metastatic ductal breast carcinoma. The tumor deposit measures 4 mm in greatest contiguous dimension. It is noted that ER, NC, HER2 and Ki-67 studies for prognostic purposes were performed on the recent core biopsies of the ipsilateral breast masses ([id number] and [id number]). The studies can be repeated on the current specimen at the treating physician's request. Family Coach material from this case was also reviewed by Dr. Roberto Banda, who agrees with the diagnosis of malignancy. Overall Assessment: Malignant Assessment: MG diagnostic mammo RT wo CAD - Right: Known biopsy proven malignancy, BI-RAD 6. Management: Surgical Consultation of the right breast. Electronically signed and approved by: Herrera Jacobson M.D.
== END ==
LOC: RADUSWWP 09:36
PROVIDERS: ATTEND Surgery
DX: C50.911 Malignant neoplasm of unspecified site of right female breast (principal); Z85.3 Personal history of malignant neoplasm of breast
CPT/HCPCS: 88305; 88342; 88341; 77065; 19083; A4648

== ENCOUNTER → 2022-12-06 | Outpatient (CLI) | payer MEDICARE, OTHER ==
--- NOTE | 2022-12-06 10:40 | USB ---
Reason for Exam: Clinical finding. Patient History: Menarche at age 11. First Full-Term at age 18. Breast cancer, right, age 47. Breast cancer, right, age 47. Other cancer, age 47. 10/11/2022, Malignant US biopsy breast VAD RT on the right side. 09/27/2022, MG stereo VAD BX addl RT on the Right side. 09/27/2022, Malignant MG stereo VAD BX RT on the right side. 09/27/2022, Malignant US biopsy breast VAD RT on the right side. Technique: Method: Whole Breast Handheld. Prior Study Comparison: 09/19/2022 Bilateral MG 3D diag mammo w/cad LALI, [facility]. 09/27/2022 Right MG diagnostic mammo RT wo CAD, [facility]. 10/11/2022 Right MG diagnostic mammo RT wo CAD, [facility]. Findings: The whole breast of the right breast, the axilla of the right breast and the retroareolar of the right breast were scanned. Imaged: Ultrasound imaging of: All 4 quadrants, the retroareolar region and axilla. Cystic lesion with biopsy clip present at 7:00 8 cm from nipple compatible with known malignancy. Right axillary lymph node which is biopsy-proven malignancy is present. No new organizing fluid collection identified. Overall Assessment: Known biopsy proven malignancy, BI-RAD 6 Electronically signed and approved by: Diaz Hyman DO
== END | disposition home or self-care (01) ==
LOC: RADUSWWP 09:52
PROVIDERS: ATTEND Internal Medicine Hematology & Oncology
DX: N64.4 Mastodynia (principal); Z85.3 Personal history of malignant neoplasm of breast

== ENCOUNTER → 2023-01-08 | Outpatient (CLI) | payer MEDICARE, OTHER ==
--- NOTE | 2023-01-29 07:37 | USB ---
Reason for Exam: Clinical finding. Patient History: Menarche at age 11. First Full-Term at age 18. Breast cancer, right, age 47. Breast cancer, right, age 47. Other cancer, age 47. 10/11/2022, Malignant US biopsy breast VAD RT on the right side. 09/27/2022, MG stereo VAD BX addl RT on the Right side. 09/27/2022, Malignant MG stereo VAD BX RT on the right side. 09/27/2022, Malignant US biopsy breast VAD RT on the right side. Technique: Method: Whole Breast Handheld. Prior Study Comparison: 09/19/2022 Bilateral MG 3D diag mammo w/cad LALI, [facility]. 09/27/2022 Right MG diagnostic mammo RT wo CAD, [facility]. 10/11/2022 Right MG diagnostic mammo RT wo CAD, [facility]. Findings: The whole breast of the right breast, the axilla of the right breast and the retroareolar of the right breast were scanned. There is a hypoechoic area with irregular margins at the 7:00 position 8 cm from the nipple measuring 2.1 x 0.9 x 1.4 cm. Clip is at this location. Significant interval change is not evident. Continued Clinical management recommended. Electronically signed and approved by: Erwin Wright D.O. Radiologis
== END | disposition home or self-care (01) ==
LOC: RADUSWWP 10:55
PROVIDERS: ATTEND Internal Medicine Hematology & Oncology
DX: C50.511 Malignant neoplasm of lower-outer quadrant of right female breast (principal); D50.0 Iron deficiency anemia secondary to blood loss (chronic); N92.4 Excessive bleeding in the premenopausal period; Z17.0 Estrogen receptor positive status [ER+]

== ENCOUNTER → 2023-02-14 | Outpatient (CLI) | payer MEDICARE, OTHER ==
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
== END ==
LOC: WWCWWP 14:49
PROVIDERS: ATTEND Surgery
DX: C50.911 Malignant neoplasm of unspecified site of right female breast (principal); E11.9 Type 2 diabetes mellitus without complications; E78.00 Pure hypercholesterolemia, unspecified; F17.210 Nicotine dependence, cigarettes, uncomplicated; F32.A Depression, unspecified; F41.9 Anxiety disorder, unspecified; I10 Essential (primary) hypertension; M06.9 Rheumatoid arthritis, unspecified; M79.7 Fibromyalgia; E78.5 Hyperlipidemia, unspecified; N64.4 Mastodynia; H04.129 Dry eye syndrome of unspecified lacrimal gland; Z17.0 Estrogen receptor positive status [ER+]; Z79.85 Long-term (current) use of injectable non-insulin antidiabetic drugs; Z79.899 Other long term (current) drug therapy; Z79.82 Long term (current) use of aspirin

== ENCOUNTER 2023-03-11 10:22 | Observation (INO) | payer MEDICARE, OTHER ==
[2023-03-10 09:27] VITALS: BMI 51.0
[~2023-03-11 10:22] MED LIST changes: -DEXAMETHASONE SOD PHOSPHATE 10 MG/ML 1 ML VIAL IV ONE; +DEXAMETHASONE SOD PHOSPHATE 4 MG/ML 1 ML VIAL IV ONE; -HEPARIN SODIUM,PORCINE 5,000 UNIT/ML 1 ML VIAL SQ ONE; +HEPARIN SODIUM,PORCINE/PF 5,000 UNIT/0.5 ML SYRINGE SQ PRN; +LACTATED RINGERS 1,000 ML IV SCH; -LIDOCAINE 1% 20 ML VIAL (10MG/ML) FOR IV START INTRADERMA PRN; +SCOPOLAMINE 1 MG/72 HR PATCH TRANSDERM ONE; +ceFAZolin 3 GM in SODIUM CHLORIDE 0.9% 100 ML IVPB PRN
[2023-03-11] MEDS ORDERED: ALPRAZolam 0.5 MG TAB ONE (10:45)
[2023-03-11 10:54] LABS: Glucose,Whole Blood 123 mg/dL (70-110)
[2023-03-11] MEDS ORDERED: LIDOCAINE 1% INJ 10MG/ML (20 ML MDV) SQ ONE (11:36)
--- NOTE | 2023-03-11 11:38 | P.NAPBC ---
NAPBC Queries - NAPBC Queries Was patient's case review presented at [facility] tumor board? If no, comment.: Yes Was patient's pathology reviewed at [facility]? If no, comment.: Yes Was breast conservation surgery offered? If no, comment.: No Was sentinel node biopsy offered? If no, comment.: Yes Was diagnosis confirmed by percutaneous core biopsy? If no, comment.: Yes Is patient mastectomy patient?: Yes Was a preop referral to reconstructive surgeon offered?: Yes Clinical Stage: [id number]+Pr+Her2-G2 right breast cancer
[2023-03-11] MEDS ORDERED: PROPOFOL 10 MG/ML 20 ML VIAL IV ONE (12:30)
[2023-03-11] MEDS ORDERED: LIDOCAINE 1% INJ 10MG/ML (20 ML MDV) ONE (12:30)
[2023-03-11] MEDS ORDERED: SUCCINYLCHOLINE CHLORIDE 200 MG/10 ML VIAL IV ONE (12:30)
[2023-03-11] MEDS ORDERED: KETAMINE HCL IN 0.9 % NACL 50 MG/5 ML SYRINGE ONE (12:30)
[2023-03-11] MEDS ORDERED: fentaNYL (PF) 50 MCG/ML 2 ML AMP ONE (12:30)
[2023-03-11] MEDS ORDERED: MIDAZOLAM 2 MG/2 ML VIAL ONE (12:30)
[2023-03-11] MEDS ORDERED: ROCURONIUM 10 MG/ML (5 ML VIAL) IV ONE (12:30)
[2023-03-11] MEDS ORDERED: PHENYLEPHRINE-0.9% NACL SYG 1,000 MCG/10 ML SYRINGE ONE (12:30)
[2023-03-11] MEDS ORDERED: METHYLENE BLUE 50 MG/10 ML AMPUL MISCELLANE ONE (12:55)
--- NOTE | 2023-03-11 13:41 | NM ---
EXAMINATION TYPE: NM sentinel node injection DATE OF EXAM: 03/11/2023 COMPARISON: NONE INDICATION: Abnormal mammogram. Informed consent was obtained. A timeout was performed. The area around the right nipple was cleansed with alcohol. In a single dose, a total of 513 uCi Te chnetium 99m Tilmanocept was injected. The patient tolerated the procedure very well. IMPRESSION: 1. Successful injection for sentinel node evaluation.
[2023-03-11] MEDS ORDERED: LACTATED RINGERS 1,000 ML IV ONE (13:48)
[2023-03-11] MEDS ORDERED: ONDANSETRON 4 MG/2 ML VIAL IVP PRN (15:43)
[2023-03-11] MEDS ORDERED: NALOXONE 0.4 MG/ML 1 ML VIAL IV PRN (15:43)
--- NOTE | 2023-03-11 15:43 | P.OP ---
Date of Procedure: 03/11/23 Preoperative Diagnosis: Right breast invasive ductal carcinoma, status post neoadjuvant chemotherapy Postoperative Diagnosis: Same Procedure(s) Performed: Bilateral mastectomy, right axillary node localization via ultrasound resected, axillary node sampling, axillary node mapping, bilateral breast reconstruction with prepectoral implant reconstruction Anesthesia: DORCAS Surgeon: Vibha Cantu Estimated Blood Loss (ml): 50 IV fluids (ml): 1,200 Pathology: other (Axillary tissue, bilateral breast) Condition: stable Disposition: floor Indications for Procedure: Right breast invasive ductal carcinoma Operative Findings: Dense breast tissue Description of Procedure: The patient is a 47-year-old -[place] female diagnosed with a right breast T3 N1 M0 invasive ductal carcinoma. She is BRCA2 positive. She underwent neoadjuvant chemotherapy. She is going to undergo bilateral mastectomy reduction mastectomy incisions. She is going to have immediate prepectoral implant expanders placed by plastic surgery. She had a preoperative lymph node positive for biopsy and a clip was placed at this site. Ultrasound localization of this node was performed. Additionally tracer was injected in the periareolar area. The preoperative area she was seen by Dr. Day from plastic surgery and the incision sites were marked so that we could do a bilateral skin sparing mastectomy. A reduction approached. The patient was brought to the operative suite, and following induction of anesthesia the neoprobe was used to interrogate the axilla. No radioactivity was identified. Therefore 4 mL of 50% methylene blue were injected in the periareolar region on the right. The breast was massaged for 5 minutes. Both breasts were prepped and draped in a sterile fashion. A Jeong catheter was placed prior to this. The area of the right axilla was approached initially. An incision was made in the axillary hairline and carried down to the needle. This was grasped and the surrounding tissue was palpated and excised. This nodularity was noted near the tip of the needle which was believed to be the abnormal lymph node. An ultrasound of the specimen revealed the wire intact was believed to be the lymph node. Additionally on palpation another area of firmness was identified and this was removed. This was bisected and sent to pathology where touch prep confirmed that it was a lymph node. No other palpable adenopathy of concern was identified. No radioactive adenopathy was identified. No blue lymph nodes were identified. After we completed the flow sampling the axilla was irrigated. After assured that hemostasis was attained the deep tissues were closed using 3- 0 Vicryl suture. This was followed by closure of the subcutaneous tissue with 3-0 Vicryl suture and a 4-0 subcuticular skin closure. Following this the area of the right breast was approached. Using the incisions which had been marked in the preoperative area superior inferior medial and lateral skin flaps were developed. These were developed down to the pectoralis muscle. The breast was brought from medial to lateral off the pectoralis muscle. Hemostasis was attained using electrocautery device as well as the Harmonic scalpel. Several vessels were suture ligated. Surgicel in powder form was placed. The specimen was removed. The specimen was tagged with a short stitch superior, long stitch lateral. Following this Dr. Day from plastic surgery came to place a right prepectoral implant. All instrument and sponge counts were correct prior to this. After instruments and sponge counts had been replaced the left side was approached. Utilizing the markings that had been placed in the preoperative area superior medial lateral and inferior skin flaps were developed. The testes tissue was dissected down to the pectoralis major muscle. We was removed from medial to lateral being careful to maintain hemostasis using the electrocautery device. The cavity was irrigated. Several vessels were suture ligated. The Harmonic Scalpel was used as necessary. Surgicel in powder form was placed. Dr. Day then placed a prepectoral template maker.
[2023-03-11] MEDS ORDERED: DEXTROSE 5%-0.45% NACL 1,000 ML IV SCH (15:45)
[2023-03-11] MEDS: HYDROmorphone 0.5 MG/0.5 ML SYRINGE IVP PRN ×2 (17:25→17:34)
[2023-03-11 17:29] LABS: Glucose,Whole Blood 147 mg/dL (70-110)
[2023-03-11] MEDS: HYDROcodone/APAP 5-325MG 1 EACH TAB PO PRN (18:31)
[2023-03-11] MEDS: ceFAZolin 3 GM in SODIUM CHLORIDE 0.9% 100 ML IVPB SCH (21:00)
[2023-03-11] MEDS: MORPHINE SULFATE 4 MG/ML SYRINGE IVP PRN (21:01)
[2023-03-11] MEDS: SODIUM CHLORIDE 0.9% 1,000 ML IV SCH (22:07)
[2023-03-12] MEDS: HEPARIN SODIUM,PORCINE 5,000 UNIT/ML 1 ML VIAL SQ SCH ×4 (00:21→22:36)
[2023-03-12] MEDS: MORPHINE SULFATE 4 MG/ML SYRINGE IVP PRN ×6 (00:22→21:25)
[2023-03-12] MEDS ORDERED: QUEtiapine 100 MG TAB PO STA (01:18)
[2023-03-12] MEDS: HYDROcodone/APAP 5-325MG 1 EACH TAB PO PRN ×3 (02:01→13:54)
[2023-03-12] MEDS: ceFAZolin 3 GM in SODIUM CHLORIDE 0.9% 100 ML IVPB SCH ×3 (05:23→21:32)
[2023-03-12 07:06] LABS: Basophils % (A) 0 %; Eosinophils # (A) 0.1 k/uL (0-0.7); Eosinophils % (A) 2 %; HCT 35.3 % (34.0-46.0); Hypochromasia Moderate; Lymphocytes # (A) 1.1 k/uL (1.0-4.8); Lymphocytes % (A) 18 %; MCH 27.6 pg (25.0-35.0); MCHC 31.1 g/dL (31.0-37.0); MCV 88.6 fL (80.0-100.0); Monocytes # (A) 0.3 k/uL (0-1.0); Monocytes % (A) 5 %; Neutrophils # (A) 4.6 k/uL (1.3-7.7); Neutrophils % (A) 74 %; Platelet Count 149 k/uL (150-450); RBC 3.98 m/uL (3.80-5.40); RDW 15.3 % (11.5-15.5); WBC 6.2 k/uL (3.8-10.6)
--- NOTE | 2023-03-12 07:29 | OP ---
OPERATIVE REPORT DATE OF SERVICE : 03/11/2023 PREOPERATIVE DIAGNOSES: 1. Acquired loss, right and left breast. 2. Invasive breast cancer, right breast. 3. Genetic predisposition to breast cancer. POSTOPERATIVE DIAGNOSES: 1. Acquired absence, right and left breast. 2. Invasive breast cancer, right breast. 3. Genetic predisposition to breast cancer. OPERATIVE PROCEDURES: 1. Immediate reconstruction right breast following mastectomy with insertion of tissue assistant refinery operator, subsequent outpatient expansion. 2. Immediate reconstruction left breast following mastectomy with insertion of tissue assistant refinery operator and subsequent outpatient expansion. 3. Local tissue rearrangement and flap with excision of additional tissue for right and left breast reconstruction, 363 square cm. 4. Implantation of reconstructive graft for right and left breast reconstruction. OPERATIVE INDICATIONS: The patient is a 47-year-old female who has invasive cancer of the right breast. She required preoperative chemotherapy and had good response because the tumor was shrunk significantly. Genetic testing has been positive for BRCA2. The patient plans to undergo right-sided therapeutic mastectomy with sentinel lymph node excision and prophylactic mastectomy for the left breast. She was referred to my care. She desires breast reconstruction at the time of her mastectomy procedures. She has elected to proceed with a tissue assistant refinery operator style technique in prepectoral plane. The patient has very large pendulous breasts and will require additional surgery to optimize the breast reconstruction in the form of local tissue rearrangement. The patient is aware of potential risks and complications of the procedure including, but not limited to, hematoma, seroma, infection, wound healing problems, among others. She has requested I perform the surgery. OPERATIVE PROCEDURE SUMMARY: The patient was seen in the preoperative area, markings made, procedure reviewed. All questions answered. She was transported to the operating room where she was placed in supine position. Following induction of general endotracheal anesthesia, the patient was prepped and draped in usual fashion. Dr. Cantu and her team proceeded with right-sided sentinel lymph node excision, then right-sided therapeutic mastectomy. Once these procedures were completed, I entered the operative suite and initiated the right-sided breast reconstruction with Dr. Cantu and her team proceeded with left- sided mastectomy. The right-sided mastectomy wound was open. There was no active bleeding. The cavity was measured. Additional dissection was required to optimize positioning of tissue assistant refinery operator. Once that was completed, the cavity was remeasured and a tissue assistant refinery operator opened on the field, both expanders today with the same size from [employer] tissue assistant refinery operator line [id number], the right-sided serial number was [id number] and later when opened, the left-sided serial number was [id number]. The right-sided device was open to the surgeon. All air extracted, irrigated with saline and filled to a volume of 500 mL with air, the test fitting was placed in cavity. This appeared appropriate for position and volume based on the patient's tissue in space, reconstructive graft was now opened on the field, AlloDerm Select restore tissue matrix perforated medium thickness and large measuring 327 square cm. The Allo[employer]erm once opened was rinsed several times with saline pre-stretched and then used to cover all anterior surfaces of the assistant refinery operator securing to the 6 suture tab locations with interrupted 2-0 Vicryl. Once that was complete, the 2nd tissue assistant refinery operator was opened on the field again, irrigated with saline, all air extracted and filled to a volume of 500 mL using air. A 2nd piece of [employer] Select restore tissue matrix perforated medium thickness large measuring 327 square cm, was opened on the field, rinsed several times, pre-stretched and then used to cover all anterior surfaces of the left-sided assistant refinery operator securing the graft to the suture tab locations in 6 separate spots with interrupted 2-0 Vicryl. With the left-sided mastectomy complete, the left-sided cavity was inspected, the additional dissection required for optimal position of the assistant refinery operator. The assistant refinery operator was placed in for test fitting as was the right assistant refinery operator. The minor additional dissection was required. Then, the expanders were secured to the chest wall using 4 of the 6 suture tabs and 2-0 Vicryl suture, two 19 round Joey channel drains opened on the field and 1 drain placed in each reconstructive cavity and brought as separate stab incision in the left to right anterior lateral chest wall and sutured in place with 2-0 Prolene. They were cut to appropriate length. Closure of the mastectomy wounds required rearrangement of tissue to optimize shape of the patient's breast creating lateral triangular flaps and also required removal of small amount of redundant skin subcutaneous tissue. The right-sided flap rearrangement tissue measured 14 x 12 square cm and the left-sided 15 x 13 square cm. The areas were first marked with skin marker. The tissue marker rearrangement was de-epithelialized creating dermal subcutaneous tissue flap. This was then transposed in the lateral fashion securing to deep subcutaneous tissue layer and the more cephalad portion of the flap was advanced over the more inferior portion and secured to the dermal layer using inverted interrupted 4- 0 Monocryl, small amount of additional tissue that created a dog-ear on the right and left lateral corner of each flap was marked with skin marker and directly excised using 10 blade scalpel and sent to pathology, either additional tissue right breast or additional tissue left breast. The remaining open portion incisions were now approximated at deep dermal level using inverted interrupted 4-0 Monocryl and completing superficial dermal and epidermal closure with short running 5-0 Prolene as well as placing several meka. Drains were connected to close bulb suction and patent surgical love cleansed with saline dried and covered with postoperative bandages using Kerlix squares, drain sponges, ABD pads, all secured with 3 Medipore tape. ESTIMATED BLOOD LOSS: 25 mL. The patient was awakened in the operating room, transferred to recovery room in good condition with stable vital signs. There were no complications. MMODL / IJN: [id number] /
--- NOTE | 2023-03-12 09:37 | P.PN ---
Subjective Progress Note Date: 03/12/23 Principal diagnosis: POD #1 bilateral mastectomy with prepectoral implant reconstruction, right sentinel node biopsy Renee is a 47-year-old -[place] female status post bilateral skin sparing mastectomy with prepectoral implant reconstruction. She also had a right sentinel node biopsy. Postoperatively she is continuing to experience pain requiring IV pain medication. She has serosanguineous output from both of her drains with a questionable small hematoma in the superior aspect of the left breast. Her hemoglobin is 11, white blood cell count 6.2. Objective - Vital Signs Vital signs: Vital Signs Temp 98.2 F 03/12/23 04:18 Pulse 86 03/12/23 04:18 Resp 16 03/12/23 04:18 BP 111/60 03/12/23 04:18 Pulse Ox 100 03/12/23 04:18 FiO2 Intake & Output 03/11/23 03/12/23 03/12/23 18:59 06:59 18:59 Intake Total 1100 500 Output Total 375 1100 Balance 725 -600 Weight 143.8 kg Intake: IV 1100 Intake, IV Titration 100 Amount Sodium Chloride 0.9% 1, 100 000 ml @ 100 mls/hr IV . Q10H [facility] Rx#:[id number] Oral 400 Output: Drainage 100 Left Breast 15 Right Breast 85 Urine 300 1000 Uretheral (Jeong) 450 Estimated Blood Loss 75 - Constitutional General appearance: Present: cooperative - EENT Eyes: Present: EOMI ENT: Present: hearing grossly normal - Neck Neck: Present: normal ROM - Respiratory Details: Decreased breath sounds at the bases Respiratory: bilateral: CTA - Cardiovascular Heart sounds: normal: S1, S2 - Integumentary Integumentary Comment(s): Incision clean and dry bilateral and under the arm Questionable small hematoma in the superior aspect of the left chest wall, otherwise the breast are soft VIMAL right 35 mL, serosanguineous VIMAL left 40 mL serosanguineous - Labs CBC & Chem 7: 03/12/23 06:42 Labs: Abnormal Lab Results - Last 24 Hours (Table) 03/11/23 03/11/23 03/12/23 Range/Units 10:51 17:27 06:42 Hgb 11.0 L (11.4-16.0) gm/dL Plt Count 149 L (150-450) k/uL POC Glucose (mg/dL) 123 H 147 H (70-110) mg/dL Assessment and Plan Assessment: Impression: 47-year-old female status post bilateral mastectomy with prepectoral implant reconstruction postop day #1 Patient continuing to require IV pain medication Plan: Dressings changed Await medicine consult Continue present care Probable discharge home tomorrow CC: Dr. Daily
[2023-03-12] MEDS ORDERED: QUEtiapine 100 MG TAB PO SCH (21:00)
[2023-03-12] MEDS ORDERED: ACETAMINOPHEN IV (For NPO) 1,000 MG in EMPTY BAG 1 BAG IVPB STA (21:32)
[2023-03-12] MEDS: SODIUM CHLORIDE 0.9% 1,000 ML IV SCH ×2 (21:37→22:38)
[2023-03-12 22:04] VITALS: TEMP 97.7
[2023-03-13] MEDS: HEPARIN SODIUM,PORCINE 5,000 UNIT/ML 1 ML VIAL SQ SCH ×2 (00:23→07:52)
[2023-03-13] MEDS: MORPHINE SULFATE 4 MG/ML SYRINGE IVP PRN ×3 (01:45→09:42)
[2023-03-13] MEDS: ceFAZolin 3 GM in SODIUM CHLORIDE 0.9% 100 ML IVPB SCH (03:43)
[2023-03-13] MEDS: HYDROcodone/APAP 5-325MG 1 EACH TAB PO PRN ×2 (03:47→10:46)
[2023-03-13 04:17] VITALS: BP 121/75; PULSE 83; RESP 14
--- NOTE | 2023-03-13 09:46 | P.PN ---
Subjective Progress Note Date: 03/13/23 Principal diagnosis: POD #2 bilateral mastectomy with prepectoral implant reconstruction, right sentinel node biopsy Renee is a 47-year-old -[place] female status post bilateral skin sparing mastectomy with prepectoral implant reconstruction. She also had a right sentinel node biopsy. Postoperatively her pain has improved. She has serosanguineous output from both of her drains with no evidence of hematoma. Her hemoglobin is 11, white blood cell count 6.2. Objective - Vital Signs Vital signs: Vital Signs Temp 97.7 F 03/12/23 20:00 Pulse 83 03/13/23 04:00 Resp 14 03/13/23 04:00 BP 121/75 03/13/23 04:00 Pulse Ox 100 03/13/23 04:00 FiO2 Intake & Output 03/12/23 03/13/23 03/13/23 18:59 06:59 18:59 Output Total 910 525 Balance -910 -525 Output: Drainage 260 125 Left Breast 170 80 Right Breast 90 45 Urine 650 400 Other: # Voids 1 1 - Constitutional General appearance: Present: cooperative - EENT Eyes: Present: EOMI ENT: Present: hearing grossly normal - Neck Neck: Present: normal ROM - Respiratory Respiratory: bilateral: CTA - Cardiovascular Heart sounds: normal: S1, S2 - Integumentary Integumentary Comment(s): Incision axilla as well as bilateral breasts clean and dry Integumentary: Present: normal turgor - Musculoskeletal Musculoskeletal Comment(s): Sitting at bedside - Psychiatric Psychiatric: Present: A&O x's 3, appropriate affect, intact judgment & insight - Labs CBC & Chem 7: 03/12/23 06:42 Assessment and Plan Assessment: Impression: 47-year-old female status post bilateral mastectomy with prepectoral implant reconstruction postop day #2 Pain improved Plan: Continue present care Discharge home if okay with medicine Patient as well as her caregiver taught VIMAL stripping and how to record the output CC: Dr. Daily
[2023-03-13] MEDS: SODIUM CHLORIDE 0.9% 1,000 ML IV SCH (10:03)
== END 2023-03-13 11:03 | disposition home health service (06) ==
LOC: OR 10:22 → 4FBP 10:23
PROVIDERS: ADMIT Surgery; ATTEND Surgery
DX: C50.511 Malignant neoplasm of lower-outer quadrant of right female breast (principal); C77.3 Secondary and unspecified malignant neoplasm of axilla and upper limb lymph nodes; Z15.01 Genetic susceptibility to malignant neoplasm of breast; Z92.21 Personal history of antineoplastic chemotherapy
CPT/HCPCS: 96376 ×2; 96361 ×2; 96365; 96366 ×2; 96372 ×2; 96375 ×2; 88305; 85025; 88342; 88341; 76098; 19285; 38792; 19307; 19357; 14301; 14302 ×11; 15777 ×2; G0378 ×3; C1889; C1819; A9520; J2250; J0330; J2270 ×3; J1644 ×3; J1100; J0690 ×3; J2405; J2001; J3010; J0131; J2704; Q9968; J1170; J2371

== ENCOUNTER → 2023-03-20 | Outpatient (CLI) | payer MEDICARE, OTHER ==
--- NOTE | 2023-03-20 13:23 | P.PN ---
Progress Note - Text Progress Note Date: 03/20/23 Renee is status post bilateral mastectomy via reduction mammoplasty incision with a right sentinel node biopsy. Her pathology revealed a 2 mm invasive ductal carcinoma in the right breast in the background of extensive high-grade ductal carcinoma in situ. 6 lymph nodes were removed 3 of 4 nodes were positive for isolated tumor cells. There was no macro or micrometastatic disease. The patient has bilateral VIMAL drains) over 50 mL per day on the drains. Examination: Lungs: Clear Heart: Regular rate and rhythm Bilateral incisions clean and dry It appears that the implant on the left may have inverted and she is following with Dr. Day tomorrow VIMAL output is serous on both sides Impression: Patient doing well postoperative Plan: Follow up with Dr. Day Follow appearance 4 weeks Follow up with medical oncology Follow-up radiation oncology CC: DR. Daily
== END ==
LOC: WWCWWP 12:31
PROVIDERS: ATTEND Surgery
DX: F17.200 Nicotine dependence, unspecified, uncomplicated (principal); Z90.13 Acquired absence of bilateral breasts and nipples

== ENCOUNTER → 2023-06-05 | Outpatient (CLI) | payer MEDICARE, OTHER ==
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
[2023-06-05 11:08] VITALS: BP 99/68; PULSE 101; RESP 16; TEMP 98
== END ==
LOC: WWCWWP 09:05
PROVIDERS: ATTEND Surgery
DX: C50.911 Malignant neoplasm of unspecified site of right female breast (principal); M06.9 Rheumatoid arthritis, unspecified; F32.A Depression, unspecified; F41.9 Anxiety disorder, unspecified; I10 Essential (primary) hypertension; E78.00 Pure hypercholesterolemia, unspecified; N64.4 Mastodynia; M79.7 Fibromyalgia; E11.9 Type 2 diabetes mellitus without complications; F17.290 Nicotine dependence, other tobacco product, uncomplicated; F12.90 Cannabis use, unspecified, uncomplicated; D89.89 Other specified disorders involving the immune mechanism, not elsewhere classified; G57.53 Tarsal tunnel syndrome, bilateral lower limbs; H04.123 Dry eye syndrome of bilateral lacrimal glands; Z15.01 Genetic susceptibility to malignant neoplasm of breast; Z15.09 Genetic susceptibility to other malignant neoplasm; Z17.0 Estrogen receptor positive status [ER+]; Z79.1 Long term (current) use of non-steroidal anti-inflammatories (NSAID); Z79.82 Long term (current) use of aspirin; Z79.899 Other long term (current) drug therapy; Z79.85 Long-term (current) use of injectable non-insulin antidiabetic drugs

== ENCOUNTER 2023-06-23 08:35 | Day surgery (SDC) | payer MEDICARE, OTHER ==
[2023-06-23] MEDS ORDERED: MIDAZOLAM 2 MG/2 ML VIAL IV PRN (08:44)
[2023-06-23] MEDS ORDERED: LIDOCAINE 1% (10MG/ML) FOR IV START INTRADERMA PRN (08:44)
[2023-06-23] MEDS ORDERED: LACTATED RINGERS 1,000 ML IV SCH (08:44)
[2023-06-23] MEDS: LACTATED RINGERS 1,000 ML IV ONE ×2 (09:15→11:43)
[2023-06-23 09:26] LABS: Glucose,Whole Blood 132 mg/dL (70-110)
[2023-06-23 09:33] LABS: Anisocytosis Slight; Basophils % (A) 1 %; Eosinophils # (A) 0.1 k/uL (0-0.7); Eosinophils % (A) 2 %; HCT 39.1 % (34.0-46.0); HGB 12.3 gm/dL (11.4-16.0); Hypochromasia Slight; Lymphocytes # (A) 0.8 k/uL (1.0-4.8); Lymphocytes % (A) 26 %; MCH 23.6 pg (25.0-35.0); MCHC 31.4 g/dL (31.0-37.0); Mean Platelet Volume 9.5; Microcytosis Slight; Monocytes # (A) 0.2 k/uL (0-1.0); Monocytes % (A) 7 %; Neutrophils # (A) 2.1 k/uL (1.3-7.7); Neutrophils % (A) 63 %; Platelet Count 173 k/uL (150-450); RBC 5.21 m/uL (3.80-5.40); RDW 16.1 % (11.5-15.5); WBC 3.3 k/uL (3.8-10.6)
[2023-06-23] MEDS: SCOPOLAMINE 1 MG/72 HR PATCH TRANSDERM ONE (09:57)
[2023-06-23] MEDS: ONDANSETRON 4 MG/2 ML VIAL IVP ONE ×2 (09:57→12:48)
[2023-06-23] MEDS: DEXAMETHASONE SOD PHOSPHATE 4 MG/ML 1 ML VIAL IV ONE (09:57)
[2023-06-23] MEDS: FAMOTIDINE 20 MG/2 ML VIAL IVP ONE (09:58)
[2023-06-23] MEDS ORDERED: DEXAMETHASONE SOD PHOSPHATE 10 MG/ML 1 ML VIAL ONE (10:08)
[2023-06-23] MEDS: MIDAZOLAM 2 MG/2 ML VIAL IVP ONE (10:08)
[2023-06-23] MEDS ORDERED: KETAMINE HCL IN 0.9 % NACL 50 MG/5 ML SYRINGE ONE (10:08)
[2023-06-23] MEDS ORDERED: fentaNYL (PF) 50 MCG/ML 2 ML AMP ONE (10:08)
[2023-06-23] MEDS ORDERED: ROCURONIUM 10 MG/ML (5 ML VIAL) IV ONE (10:08)
[2023-06-23] MEDS ORDERED: SUCCINYLCHOLINE CHLORIDE 200 MG/10 ML VIAL IV ONE (10:08)
[2023-06-23] MEDS ORDERED: GLYCOPYRROLATE 0.2 MG/ML 2 ML VIAL ONE (10:08)
[2023-06-23] MEDS ORDERED: LIDOCAINE 1% INJ 10MG/ML (20 ML MDV) ONE (10:08)
[2023-06-23] MEDS ORDERED: PHENYLEPHRINE-0.9% NACL SYG 1,000 MCG/10 ML SYRINGE ONE (10:08)
[2023-06-23] MEDS ORDERED: MIDAZOLAM 2 MG/2 ML VIAL ONE (10:08)
[2023-06-23] MEDS ORDERED: PROPOFOL 10 MG/ML 20 ML VIAL IV ONE (10:08)
[2023-06-23] MEDS ORDERED: NEOSTIGMINE 1 MG/ML 10 ML VIAL ONE (10:08)
[2023-06-23] MEDS: ceFAZolin 3 GM in SODIUM CHLORIDE 0.9% 100 ML IVPB PRN (10:40)
[2023-06-23 12:21] VITALS: RESP 16; TEMP 97.7
[2023-06-23] MEDS: HYDROmorphone 0.5 MG/0.5 ML SYRINGE IVP PRN (12:24)
[2023-06-23 12:31] LABS: Glucose,Whole Blood 177 mg/dL (70-110)
[2023-06-23] MEDS ORDERED: HYDROcodone/APAP 7.5-325MG 1 EACH TAB ONE (13:25)
[2023-06-23] MEDS: HYDROcodone/APAP 7.5-325MG 1 EACH TAB PO ONE (13:29)
[2023-06-23 14:05] VITALS: BP 119/65; PULSE 91
--- NOTE | 2023-06-23 19:37 | OP ---
OPERATIVE REPORT DATE OF SERVICE : 06/23/2023 PREOPERATIVE DIAGNOSES: 1. Acquired absence of bilateral breasts. 2. Personal history of bilateral mastectomy. 3. Personal history of breast cancer. 4. Acquired deformity of right and left reconstructed breasts. 5. Acquired loss of right and left breast inframammary folds. POSTOPERATIVE DIAGNOSES: 1. Acquired absence of bilateral breasts. 2. Personal history of bilateral mastectomy. 3. Personal history of breast cancer. 4. Acquired deformity of right and left reconstructed breasts. 5. Acquired loss of right and left breast inframammary fold. OPERATIVE PROCEDURES: 1. Replace left reconstructed breast tissue woodworking belt sander, silicone breast implant for left breast reconstruction. 2. Revision left reconstructed breast. 3. Replace right reconstructed breast tissue woodworking belt sander with silicone breast implant for right breast reconstruction. 4. Revision right reconstructed breast. 5. Reconstruction of right and left breast inframammary folds via local advancement flaps, 75 sq cm. OPERATIVE INDICATIONS: The patient is a 48-year-old female who has undergone bilateral mastectomy procedures with immediate reconstruction via tissue woodworking belt sander technique. The patient has completed subsequent outpatient expansion returning to surgery for placement of breast implants, removal of expanders, revision of the breast to optimize the shape and form as well as reconstruction of the inframammary folds that have been effaced. The patient is aware of potential risks and complications including those related to implants as well as surgery such as hematoma, seroma, wound healing problems, infection among others. She has requested to perform the surgery. OPERATIVE PROCEDURE SUMMARY: The patient was seen in the preoperative area. Markings were made. Procedure was reviewed. All questions were answered. She was transported to the operating room, where she was placed in supine position. Following induction of general anesthesia, the patient was prepped and draped in the usual fashion. The scars from the prior mastectomy site were identified and marked for incision points today using skin marker, remained on the left side. Incision made dividing the skin in full-thickness fashion and cauterization used to divide subcutaneous tissue and elevate skin and subcutaneous tissue flaps off the underlying graft layer. Dissection was extensive to release contour irregularities and deformities. With this complete, the incisions made through the graft offset from the skin incision inferiorly and transversely exposing the woodworking belt sander. Open Pit Quarry Supervisor was removed intact and discarded. The cavity was irrigated. A complete capsulotomy incision was made where the capsule joined the chest wall. Cruciate incisions through the capsular structure to release tightness on the anterior medial inferior surface. The site was irrigated. Hemostasis was optimized with cautery and packed with laparotomy sponges. Attention was turned towards the right side. Incision made following the diagram placed. The skin is divided in full- thickness fashion. Cautery used to divide subcutaneous tissue maintaining hemostasis. Skin and subcutaneous tissue flaps were elevated off the graft layer. Extensive dissection required to release the deformities caused by scarring, expansion, and healing processes. With this complete, a transverse incision was made through the capsular layer exposing the woodworking belt sander. Open Pit Quarry Supervisor was removed, intact and discarded. The cavity appeared normal. Irrigations performed and complete capsulotomy incision was made where the capsule joined the chest wall. Multiple cruciate incisions through the capsular structure anterior medially and inferiorly to release tightness here. The inframammary folds were reconstructive on the left and right side by dissecting through the inferior capsulotomy incision following the markings placed preoperatively. On the left side, it measured 30 x 1.5 sq cm; on the right side, 30 x 1 sq cm. Dissection created skin and subcutaneous tissue flap, was advanced cephalad and then secured to the chest wall rib periosteal tissue using multiple interrupted 2-0 Vicryl sutures, creating inframammary folds on right and left side. With this completed, tissue irrigations performed. Hemostasis was optimized with cautery on each side. Temporary breast implant sizers were opened on the field. Ultimately, 800 mL sizers appeared best, the Sizer was removed. Cavities were irrigated. Hemostasis was optimal. Gloves changed. Implants now opened on the field. Both implants measured 800 mL from [facility] SoftTouch breast implant line, reference #[id number]. The serial number for the left side was [id number]. The serial number for the right side was [id number]. The left-sided implant was opened first using a Donald funnel, no-touch technique, is placed in the reconstructive cavity. The right-sided implant opened and again using the Donald funnel, no-touch technique placed in the reconstructive cavity. The graft layers were then approximated over the implants for coverage using a running 3-0 Vicryl suture followed by closure of the incisions approximating the deep dermis using inverted interrupted 4-0 Monocryl and then closure of superficial dermis and epidermis with a simple running 5-0 Prolene. Surgical love were cleansed with saline and dried, and postoperative bandages were placed using sterile Kerlix squares secured with 3M Medipore tape in position, and size 5 white mammary support with additional gauze padding in the lateral aspects. The patient was then awakened from her anesthetic, extubated and transferred to the recovery room in good condition with stable vital signs. The estimated blood loss was 50 mL. There were no complications. CHARAN / TERESAN: [id number] /
== END 2023-06-23 14:16 | disposition home or self-care (01) ==
LOC: OR 08:35
PROVIDERS: ATTEND Plastic Surgery
DX: N65.0 Deformity of reconstructed breast (principal); I10 Essential (primary) hypertension; E78.5 Hyperlipidemia, unspecified; G47.33 Obstructive sleep apnea (adult) (pediatric); E11.9 Type 2 diabetes mellitus without complications; M79.7 Fibromyalgia; J44.9 Chronic obstructive pulmonary disease, unspecified; K21.9 Gastro-esophageal reflux disease without esophagitis; F17.210 Nicotine dependence, cigarettes, uncomplicated; Z90.13 Acquired absence of bilateral breasts and nipples; Z85.3 Personal history of malignant neoplasm of breast; Z79.51 Long term (current) use of inhaled steroids; Z79.899 Other long term (current) drug therapy; Z98.890 Other specified postprocedural states
CPT/HCPCS: 19357; 80051; 85025; C1789; J2250; J1100; J0690; J2405; J3490; J1170

== ENCOUNTER 2023-07-28 08:50 | Day surgery (SDC) | payer MEDICARE, OTHER ==
[2023-07-25 12:15] VITALS: BMI 54.8
[~2023-07-28 08:50] MED LIST changes: -DEXAMETHASONE SOD PHOSPHATE 4 MG/ML 1 ML VIAL IV ONE; -HEPARIN SODIUM,PORCINE/PF 5,000 UNIT/0.5 ML SYRINGE SQ PRN; -LACTATED RINGERS 1,000 ML IV SCH; +LIDOCAINE 1% (10MG/ML) FOR IV START INTRADERMA PRN; -MIDAZOLAM 2 MG/2 ML VIAL IV PRN; -ONDANSETRON 4 MG/2 ML VIAL IVP ONE; -SCOPOLAMINE 1 MG/72 HR PATCH TRANSDERM ONE; -ceFAZolin 3 GM in SODIUM CHLORIDE 0.9% 100 ML IVPB PRN; +droPERidol 5 MG/2 ML VIAL IVP ONE
[2023-07-28] MEDS: LACTATED RINGERS 1,000 ML IV SCH (09:28)
[2023-07-28 09:39] LABS: Glucose,Whole Blood 135 mg/dL (70-110)
[2023-07-28] MEDS: DEXAMETHASONE SOD PHOSPHATE 4 MG/ML 1 ML VIAL IV ONE (09:42)
[2023-07-28] MEDS: MIDAZOLAM 2 MG/2 ML VIAL IVP ONE (09:43)
[2023-07-28] MEDS: ONDANSETRON 4 MG/2 ML VIAL IVP ONE (09:43)
[2023-07-28] MEDS ORDERED: GLYCOPYRROLATE 0.2 MG/ML 2 ML VIAL ONE (09:49)
[2023-07-28] MEDS ORDERED: diphenhydrAMINE 50 MG/ML 1 ML VIAL ONE (09:49)
[2023-07-28] MEDS ORDERED: fentaNYL (PF) 50 MCG/ML 2 ML AMP ONE (09:49)
[2023-07-28] MEDS ORDERED: PHENYLEPHRINE-0.9% NACL SYG 1,000 MCG/10 ML SYRINGE ONE (09:49)
[2023-07-28] MEDS ORDERED: ESMOLOL 100 MG/10 ML VIAL ONE (09:49)
[2023-07-28] MEDS ORDERED: LIDOCAINE 1% INJ 10MG/ML (20 ML MDV) ONE (09:49)
[2023-07-28] MEDS ORDERED: SUCCINYLCHOLINE CHLORIDE 200 MG/10 ML VIAL IV ONE (09:49)
[2023-07-28] MEDS ORDERED: PROPOFOL 10 MG/ML 20 ML VIAL IV ONE (09:49)
[2023-07-28] MEDS: ceFAZolin 3 GM in SODIUM CHLORIDE 0.9% 100 ML IVPB PRN (09:54)
[2023-07-28] MEDS: LACTATED RINGERS 1,000 ML IV ONE (10:43)
[2023-07-28] MEDS: HYDROmorphone 0.5 MG/0.5 ML SYRINGE IVP PRN (11:28)
[2023-07-28 11:42] LABS: Glucose,Whole Blood 134 mg/dL (70-110)
[2023-07-28 12:00] VITALS: TEMP 98.1
[2023-07-28 12:42] VITALS: BP 127/55
[2023-07-28 13:23] VITALS: PULSE 108; RESP 20
--- NOTE | 2023-07-28 14:20 | OP ---
OPERATIVE REPORT DATE OF SERVICE : 07/28/2023 PREOPERATIVE DIAGNOSES: 1. Open wound, left reconstructed breast with exposure of breast implant. 2. Personal history of breast cancer. POSTOPERATIVE DIAGNOSES: 1. Open wound, left reconstructed breast with exposure of implant. 2. Personal history of breast cancer. PROCEDURES PERFORMED: 1. Removal of left reconstructed breast implant with deep culture and irrigation. 2. Complex repair of open left breast wound, 9 cm length. OPERATIVE INDICATIONS: The patient is a 48-year-old female with a history of breast cancer. She underwent bilateral mastectomy procedure including a therapeutic mastectomy and prophylactic mastectomy with immediate reconstruction via tissue learning and development officer technique. She completed subsequent outpatient expansion and underwent replacement of expanders with breast implant and did well initially from the surgery. Procedure was performed June 22. The patient was last seen approximately 10 days ago and appeared quite well and was considering options for contour shaping in the future. She then contacted my office 3 days ago stating a wound had developed and was open with drainage and she could see her implant. She sent photos demonstrating implant exposed. She was started on antibiotics and surgery coordinated for today. The patient is aware of potential risks and complications of today's surgery including the implant will be removed and reconstruction cannot be completed for sometime now if she desires to proceed. She has requested perform the surgery. DESCRIPTION OF PROCEDURE: The patient was seen in the preoperative area, markings made, procedure reviewed, all questions answered. She was transported to the operative room where she was placed in supine position. Following induction of general anesthesia, the patient prepped and draped in usual fashion. The open left-sided breast wound with implant visible was now excised the area for excision encompassing a full-thickness wound and associated scar tissue that appeared unhealthy. The tissue was excised and sent to pathology. The implant was now removed intact. The implant appeared normal. The implant was discarded according to hospital policy. The wound cavity appeared normal, some serous fluid, no granulation tissue, no exudates. Irrigations was performed with pulsatile irrigation using 3 L of fluid. Cauterization was used to dissect the surfaces of the capsular tissue. Additional irrigation was completed. Hemostasis was optimal. A 19 Joey channel drain inserted into the wound bed and brought separate stab incision in the left anterior lateral chest wall, suture placed with 2-0 Prolene. The drain was connected to close bulb suction. Extensive undermining was now required to optimize the closure for repair allowing anchoring layers. Undermining skin subcutaneous tissue was performed with cautery. This created a separate capsular layer from the skin subcutaneous tissue. The deep layer was then approximated using inverted interrupted 4- 0 Monocryl followed by closure of the deep dermis using inverted interrupted 4-0 Monocryl. Then the superficial dermis epidermis closed with meka. The length of repair was 9 cm. Drains connected to close bulb suction at this point and patent, surgically closed with saline, dried postoperative bandages were placed using 4x4s, drain sponges, Kerlix gauze, secured with 3-0 Medipore tape in position a size 5 white mammary support with additional gauze padding to the anterior surface for pressure effect on the left reconstructed breast. The patient was then awakened from anesthetic, extubated, and transferred to the recovery room in good condition with stable vital signs. ESTIMATED BLOOD LOSS: 30 cc. COMPLICATIONS: There were no complications. CHARAN / TERESAN: [id number] /
== END 2023-07-28 13:30 | disposition home or self-care (01) ==
LOC: OR 08:50
PROVIDERS: ATTEND Plastic Surgery
DX: S21.002A Unspecified open wound of left breast, initial encounter (principal); N61.0 Mastitis without abscess; Z85.3 Personal history of malignant neoplasm of breast; I10 Essential (primary) hypertension; E78.5 Hyperlipidemia, unspecified; J44.9 Chronic obstructive pulmonary disease, unspecified; G47.33 Obstructive sleep apnea (adult) (pediatric); Z79.51 Long term (current) use of inhaled steroids; Z79.899 Other long term (current) drug therapy; Z98.890 Other specified postprocedural states; Z98.82 Breast implant status; X58.XXXA Exposure to other specified factors, initial encounter
CPT/HCPCS: 19328; 88304; 87070; 87205; 87075; J2250; J0330; J1200; J1100; J0690; J2405; J2001; J3010; J2704; J1170; J2371; J1805

== ENCOUNTER → 2023-08-08 | Outpatient (CLI) | payer MEDICARE, OTHER ==
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
[2023-08-08 13:30] VITALS: BP 141/114; PULSE 129; RESP 16; TEMP 98
== END ==
LOC: WWCWWP 12:33
PROVIDERS: ATTEND Surgery
DX: N64.4 Mastodynia (principal); C50.911 Malignant neoplasm of unspecified site of right female breast; F17.290 Nicotine dependence, other tobacco product, uncomplicated; Z15.01 Genetic susceptibility to malignant neoplasm of breast; Z98.890 Other specified postprocedural states; Z48.817 Encounter for surgical aftercare following surgery on the skin and subcutaneous tissue; Z17.0 Estrogen receptor positive status [ER+]

== ENCOUNTER → 2023-09-16 | Outpatient (CLI) | payer MEDICARE, OTHER ==
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
== END | disposition home or self-care (01) ==
LOC: RADBDWWP 13:41
PROVIDERS: ATTEND Internal Medicine Hematology & Oncology
DX: C50.511 Malignant neoplasm of lower-outer quadrant of right female breast (principal); D50.0 Iron deficiency anemia secondary to blood loss (chronic); N92.4 Excessive bleeding in the premenopausal period; Z78.0 Asymptomatic menopausal state
CPT/HCPCS: 77080

== ENCOUNTER 2023-10-20 09:13 | Day surgery (SDC) | payer MEDICARE, OTHER ==
[~2023-10-20 09:13] MED LIST changes: -LIDOCAINE 1% (10MG/ML) FOR IV START INTRADERMA PRN; +METOCLOPRAMIDE 5 MG/ML 2 ML VIAL IVP PRN; -droPERidol 5 MG/2 ML VIAL IVP ONE
[2023-10-20] MEDS: LACTATED RINGERS 1,000 ML IV SCH (09:41)
[2023-10-20] MEDS: ONDANSETRON 4 MG/2 ML VIAL IVP ONE (09:42)
[2023-10-20] MEDS: DEXAMETHASONE SOD PHOSPHATE 4 MG/ML 1 ML VIAL IV ONE (09:42)
[2023-10-20] MEDS: IV FLUID CONTINUATION 1,000 ML IV ONE ×2 (09:43→11:55)
[2023-10-20 09:44] LABS: Glucose,Whole Blood 123 mg/dL (70-110)
[2023-10-20] MEDS: SCOPOLAMINE 1 MG/72 HR PATCH TRANSDERM STA (10:10)
[2023-10-20] MEDS: MIDAZOLAM 2 MG/2 ML VIAL IV STA (10:10)
[2023-10-20] MEDS ORDERED: KETAMINE HCL IN 0.9 % NACL 50 MG/5 ML SYRINGE ONE (10:52)
[2023-10-20] MEDS ORDERED: LIDOCAINE 1% INJ 10MG/ML (20 ML MDV) ONE (10:52)
[2023-10-20] MEDS ORDERED: PROPOFOL 10 MG/ML 20 ML VIAL IV ONE (10:52)
[2023-10-20] MEDS ORDERED: fentaNYL (PF) 50 MCG/ML 2 ML AMP ONE (10:52)
[2023-10-20] MEDS ORDERED: diphenhydrAMINE 50 MG/ML 1 ML VIAL ONE (10:52)
[2023-10-20] MEDS ORDERED: SUCCINYLCHOLINE CHLORIDE 200 MG/10 ML VIAL IV ONE (10:52)
[2023-10-20] MEDS ORDERED: PHENYLEPHRINE-0.9% NACL SYG 1,000 MCG/10 ML SYRINGE ONE (10:52)
[2023-10-20] MEDS: ceFAZolin 3 GM in SODIUM CHLORIDE 0.9% 100 ML IVPB PRN (10:57)
[2023-10-20 12:35] VITALS: TEMP 98
[2023-10-20] MEDS: HYDROmorphone 0.5 MG/0.5 ML SYRINGE IVP PRN (12:45)
[2023-10-20] MEDS: HYDROcodone/APAP 7.5-325MG 1 EACH TAB PO ONE (13:53)
[2023-10-20 14:43] LABS: Glucose,Whole Blood 158 mg/dL (70-110)
[2023-10-20] MEDS: droPERidol 5 MG/2 ML VIAL IVP ONE (14:56)
[2023-10-20 15:41] VITALS: BP 102/61; PULSE 83; RESP 16
--- NOTE | 2023-10-20 20:06 | OP ---
OPERATIVE REPORT DATE OF SERVICE : 10/20/2023 PREOPERATIVE DIAGNOSES: 1. Acquired absence of left breast. 2. Personal history of breast cancer. 3. Acquired deformity of left reconstructed breast. POSTOPERATIVE DIAGNOSES: 1. Acquired absence of left breast. 2. Personal history of breast cancer. 3. Acquired deformity of left reconstructed breast. OPERATIVE PROCEDURES: 1. Insertion of tissue meat carver for reconstruction of left breast with subsequent outpatient expansion. 2. Revision of left reconstructed breast. 3. Local flap advancement for left breast reconstruction, 64 square cm. OPERATIVE INDICATIONS: The patient is a 48-year-old female with a history of bilateral mastectomy for breast cancer, immediate reconstruction via prepectoral tissue meat carver technique. The patient did require postprocedural chemotherapy, but no radiation was required. She proceeded with completion of expansion and placement of implants. Her implant procedure was complicated by a nonhealing wound involving the left reconstructed breast that all led to infection, requiring removal of the implant and management of wound. She did heal well. The patient has been seen and evaluated in followup care in the office. Her wound site has remained stable and healed, and the tissues have softened, but significant contour irregularity and deformity is present involving the left reconstructed breast. The patient is aware of potential risks and complications related to today's surgery, including, but not limited to hematoma, seroma, wound healing problems, infection, among others. She has requested to perform the surgery. DESCRIPTION OF PROCEDURE: The patient was seen in preoperative area, markings made, procedure reviewed. All questions answered. She was transported to the operating room where she was placed in supine position. Following induction of general anesthesia, the patient was prepped and draped in the usual fashion. Using the patient's prior mastectomy closure scar, diagram for incision was drawn. Incision then made using a 10-blade scalpel to divide the skin in full-thickness fashion. The subcutaneous tissue was divided with cautery. Hemostasis maintained with cautery. A small cavity was entered with a small amount of serous fluid. This was surrounded by reconstructive graft material on this breast skin flap sides. The fluid was suctioned clear and serosanguineous. The domain for the reconstruction space was lost and now required re-elevation of skin and subcutaneous tissue flaps just off the chest wall. Once pectoralis muscle fascia was identified, the flaps were then elevated with cautery and with the aid of the Weider retractor, hemostasis maintained with cautery while dissecting. Once a sufficient size reconstructive space was created, irrigation was performed with pulsatile irrigation unit. Hemostasis maintained with cautery. Excellent hemostasis was present. The cavity was sized and a tissue meat carver opened on the field. The tissue expanders were Shawe tissue meat carver line, reference number [id number], measuring 800 cc, serial number [id number]. The device was only handled by surgeon. All air extracted and then filled with 100 mL 0.9 normal saline. The device was placed in the reconstructive cavity for test fitting. The size was appropriate with no additional space as desired. The meat carver was temporally removed and irrigated with saline and the cavity was re- irrigated. Hemostasis was optimal. A 19 Joey channel drain inserted in the reconstructive cavity and brought separate stab incision in the left anterior lateral chest wall and sutured in place with 2-0 Prolene, cut to appropriate length and later connected to close bulb suction. The meat carver was now replaced in the reconstructive cavity and secured to the chest wall using 2-0 Vicryl using the suture tabs. Additional 100 mL of 0.9 normal saline instilled into the meat carver at this point. The prior graft flare from the prior surgery was sufficient and now approximated over the meat carver using interrupted and short running 2-0 Vicryl suture. Using the magnetic master certified rv technician, the fill port for the meat carver was located on the skin surface and then the meat carver was filled to a final volume of 400 cc, which appeared appropriate amount of tension in all tissues present. The skin and subcutaneous tissue deformity was now addressed by creating an advancement flap from [id number]. The flap measured 16 x 4 square cm and was elevated off the underlying graft flare with cautery and then advanced from [id number] in inferior diagonal fashion. The flap was then secured at the deep subcutaneous tissue layer using interrupted inverted 2-0 Vicryl suture. Redundant skin, subcutaneous tissue, and scar tissue was now excised to optimize insetting of the flap. This was performed first marking the tissue and then excising the tissue with 10-blade scalpel and maintain hemostasis with cautery. The flap was then inset with a deep dermal layer using inverted interrupted 4-0 Monocryl and superficial dermis and epidermis closure completed with meka. Surgical love cleansed with saline dried and postoperative bandages placed using ABD pads, Kerlix roll gauze, all secured with 3M Medipore tape. The drain site was covered with a Biopatch and Tegaderm and then a size 5 white mammary support positioned prior to awakening the patient. The patient was then awakened from anesthetic and transferred to recovery room in good condition with stable vital signs. The estimated blood loss for the procedure was 50 mL. There were no complications. The final fill of the meat carver was 400 mL. MMODL / IJN: [id number] /
== END 2023-10-20 15:57 | disposition home or self-care (01) ==
LOC: OR 09:13
PROVIDERS: ATTEND Plastic Surgery
DX: N65.0 Deformity of reconstructed breast (principal); N61.0 Mastitis without abscess; Z85.3 Personal history of malignant neoplasm of breast; Z90.13 Acquired absence of bilateral breasts and nipples; Z80.3 Family history of malignant neoplasm of breast; I10 Essential (primary) hypertension; G47.33 Obstructive sleep apnea (adult) (pediatric); E11.69 Type 2 diabetes mellitus with other specified complication; E78.5 Hyperlipidemia, unspecified; E66.01 Morbid (severe) obesity due to excess calories; Z68.43 Body mass index [BMI] 50.0-59.9, adult; J44.9 Chronic obstructive pulmonary disease, unspecified; F17.210 Nicotine dependence, cigarettes, uncomplicated; Z79.85 Long-term (current) use of injectable non-insulin antidiabetic drugs; Z79.899 Other long term (current) drug therapy
CPT/HCPCS: 88305; 19380; 19357; 14301; J2250; J1100; J0690; J2405; J1170; J1790

== ENCOUNTER 2023-12-13 15:29 | Emergency (ER) | payer MEDICARE, OTHER ==
[2023-12-13 15:43] VITALS: RESP 18; TEMP 98
--- NOTE | 2023-12-13 16:39 | ED ---
General Adult HPI - General Chief complaint: Recheck/Abnormal Lab/Rx Stated complaint: chest pain, post-op issue Time Seen by Provider: 12/13/23 15:53 Source: patient Mode of arrival: ambulatory Limitations: no limitations - History of Present Illness Initial comments: Patient is a pleasant 48-year-old female presenting today for leakage of fluid from her left breast. Patient is status post bilateral mastectomy last February, tissue traffic warehouse supervisor placed mid October by Dr. Mistry. Woke up this morning with large amount of clear yellow fluid leaking steadily from her left breast. Has tried to apply pressure without relief. Feels shaky and sweaty, no measured fevers. No lightheadedness. No known injury/trauma to the area. - Related Data Home Medications Medication Instructions Recorded Confirmed Cetirizine HCl [Zyrtec] 10 mg PO DAILY 11/25/17 10/20/23 Ibuprofen [Advil] 800 mg PO Q6HR PRN 11/25/17 10/20/23 busPIRone HCL 35 mg PO BID 11/25/17 10/20/23 cycloSPORINE 0.05% OPHTH SOLN 1 applicator BOTH EYES Q12H 11/25/17 10/20/23 [Restasis] Bacillus Coagulans [Digestive 1 each PO DAILY 09/19/22 10/20/23 Advantage Probiotic-Prebiotic combo] Baclofen 10 mg PO HS 09/19/22 10/20/23 Celecoxib [CeleBREX] 200 mg PO DAILY 09/19/22 10/20/23 DULoxetine HCL [Cymbalta] 60 mg PO HS 09/19/22 10/20/23 Madai 500 mg PO DAILY 09/19/22 10/20/23 Pregabalin [Lyrica] 150 mg PO BID 09/19/22 10/20/23 QUEtiapine [SEROquel] 100 mg PO HS 09/19/22 10/20/23 Triamterene/Hydrochlorothiazid 1 each PO DAILY 09/19/22 10/20/23 [Triamterene-Hctz 37.5-25 mg Cp] Zinc Gluconate [Zinc] 50 mg PO DAILY 09/19/22 10/20/23 Semaglutide [Ozempic] 2 mg SQ TU 06/18/23 10/20/23 Previous Rx's Medication Instructions Recorded HYDROcodone/APAP 7.5-325MG [[place] 1 tab PO Q6H PRN 7 Days #28 tab 10/20/23 7.5-325] Allergies Allergy/AdvReac Type Severity Reaction Status Date / Time No Known Allergies Allergy Verified 10/20/23 09:27 Review of Systems ROS Statement: Those systems with pertinent positive or pertinent negative responses have been documented in the HPI. ROS Other: All systems not noted in ROS Statement are negative. Past Medical History Past Medical History: Cancer, COPD, Diabetes Mellitus, Fibromyalgia, Hyperlipi demia, Hypertension, Osteoarthritis (OA), Rheumatoid Arthritis (RA), Sleep Apnea/CPAP/BIPAP, Vascular Disorder Additional Past Medical History / Comment(s): wound prior left breast surgery- drning applying neosporine and dressings bid-running low grade fevers,prediabetic, No CPAP use. Mild Emphysema. Carpal and tarsal tunnel syndrome. Connective tissue problems - name unknown? Right breast invasive ductal cancer - last chemo Mar 2023. Hx fractured right foot, left knee 01/04 - uses cane. Slight circulation issues in legs History of Any Multi-Drug Resistant Organisms: None Reported Past Surgical History: Breast Surgery, Section, Hernia Repair, Hysterectomy, Orthopedic Surgery Additional Past Surgical History / Comment(s): breast reconstion surgery, x4 james mastectomies,UMBILICAL HERNIA REPAIR WITH MESH, ORIF left femur, wisdom teeth extraction, right breast biopsy. Past Anesthesia/Blood Transfusion Reactions: Postoperative Nausea & Vomiting (PONV) Additional Past Anesthesia/Blood Transfusion Reaction / Comment(s): no blood transfusion hx Past Psychological History: ADD/ADHD, Anxiety, Depression Smoking Status: Current every day smoker Past Alcohol Use History: None Reported Past Drug Use History: None Reported - Past Family History Father History Unknown: Yes Mother Family Medical History: Cancer Additional Family Medical History / Comment(s): Bladder cancer. Sister(s) Family Medical History: Cancer Additional Family Medical History / Comment(s): 2 sisters had cancer. one with breast one with uterine General Exam - General Exam Comments Initial Comments: PE: CONSTITUTIONAL: No apparent distress, well appearing SKIN: Warm, damp, no jaundice, hives or petechiae, masectomy scar bilateral breasts, clear yellow fluid steadily streaming from left breast, small white sore in this region, no erythema or discharge EYES: Pupils are equally round, extraocular movements intact without nystagmus, clear conjunctiva, non-icteric sclera HENT: Normocephalic, atraumatic, moist mucus membranes, oropharynx clear without exudates NECK: , Full range of motion, normal appearance PULMONARY: Clear to auscultation without wheezes, rhonchi, or rales, normal excursion, no accessory muscle use and no stridor CARDIOVASCULAR: Regular rate, rhythm, normal S1 and S2. No appreciated murmurs, rubs or gallops. Strong radial pulses with intact distal perfusion. No lower extremity edema GASTROINTESTINAL: Soft, non-tender, non-distended, no palpable masses, no rebound or guarding. No hepatosplenomegaly MUSCULOSKELETAL: Extremities have no gross deformity, no edema, redness, or swelling. No calf swelling ot TTP. NEUROLOGIC:_a/o x 3, GCS 15, normal mentation and speech. Moves all extremities x 4 without motor or sensory deficit PSYCHIATRIC:_normal mood and affect, thought process is clear and linear Limitations: no limitations Course Vital Signs 12/13/23 12/13/23 12/13/23 15:39 21:10 21:29 Temperature 98.0 F Pulse Rate 127 H 94 89 Respiratory 18 18 18 Rate Blood Pressure 142/94 107/74 104/59 O2 Sat by Pulse 100 94 L 97 Oximetry 12/13/23 21:45 Temperature Pulse Rate 74 Respiratory 18 Rate Blood Pressure 114/68 O2 Sat by Pulse 97 Oximetry Medical Decision Making - Medical Decision Making Was pt. sent in by a medical professional or institution (, PA, WARPER TENDER, urgent care, hospital, or group home...) When possible be specific @ -No Did you speak to anyone other than the patient for history (EMS, parent, family, police, friend...)? What history was obtained from this source @ -No Did you review nursing and triage notes (agree or disagree)? Why? @ -I reviewed and agree with nursing and triage notes Were old charts reviewed (outside hosp., previous admission, EMS record, old EKG, old radiological studies, urgent care reports/EKG's, group home records)? Report findings @ Reviewed op report reviewed op report from patient surgery on 10/27/2023 patient had insertion of a tissue traffic warehouse supervisor into the left breast with subsequent outpatient expansion and revision of left constructed breast and local fat flap and left flap advancement for left breast reconstruction Differential Diagnosis (chest pain, altered mental status, abdominal pain women, abdominal pain men, vaginal bleeding, weakness, fever, dyspnea, syncope, headache, dizziness, GI bleed, back pain, seizure, CVA, palpatations, mental health, musculoskeletal)? @ -Differential diagnosis remains broad over top considerations include infection, tissue traffic warehouse supervisor complication, seroma this is not all inclusive list X-rays interpreted by me (1pt min.). @ -None done CT interpreted by me (1pt min.). @ -None done U/S interpreted by me (1pt. min.). @ -None done What testing was considered but not performed or refused? (CT, X-rays, U/S, labs)? Why? @ Did consider chest CT however in 2 prevent unnecessary radiation I did discuss this with Dr. Mistry, breast surgery he states further imaging is not necessary What meds were considered but not given or refused? Why? @ -None Did you discuss the management of the patient with other professionals (pr ofessionals i.e. , PA, WARPER TENDER, lab, RT, psych nurse, social insurance analyst, air valve mechanic, teacher, protective services officer, caseworker)? Give summary @ -Discussed with Dr. Mistry, Breast surgery, kindly initially rec'd oral abx and outpatient follow up however upon further discussion of the degree and persistence of leakage of fluid, he recommends transfer to [facility], admission to medicine, general surgery residents to consult and assist with management until he is able to see patient Friday night or Friday morning; additionally recommends IV Ancef Was smoking cessation discussed for >3mins.? @ -No Was critical care preformed (if so, how long)? @ -No Were there social determinants of health that impacted care today? How? (Homelessness, low income, unemployed, alcoholism, drug addiction, transportation, low edu. Level, literacy, decrease access to med. care, detention, rehab)? @ -No Was there de-escalation of care discussed even if they declined (Discuss DNR or withdrawal of care, Hospice)? @ -No What co-morbidities impacted this encounter? (DM, HTN, Smoking, COPD, CAD, Cancer, CVA, ARF, Chemo, Hep., AIDS, mental health diagnosis, sleep apnea, morbid obesity)? @ -Breast cancer Was patient admitted / discharged? Hospital course, mention meds given and route, prescriptions, significant lab abnormalities, going to OR and other pertinent info. @ -Hospital course Transferred to [facility]-patient is a pleasant 48-year-old female history of breast cancer in remission, bilateral mastectomy last February, left breast tissue traffic warehouse supervisor placed October presenting for 1 day of leakage from left breast. On my assessment patient is holding a towel to her left breast, the towels removed a steady stream of yellow clear fluid comes from the left breast just inferior to the left areola at the 5 o'clock position. No erythema, discharge, exam limited by persistence of leakage of fluid. , though there appears to be a white sore in this area, TTP. Patient afebrile. A clean, dry ABD pad was placed over the area of leak with absorbant pad placed over it, compressive LISSA wrap placed around the area. Pain control ordered for patient, IV fluids, basic labs. Discussed with Dr. Eid, breast surgery, recs as above. Ancef ordered. Labs reviewed, patient has noted to have possible SHILOH with creatinine 1.41, however last creatinine checked was 0.93 in 2018. IV fluids ordered. UA ordered. Patient accepted for ED to ED transfer to [facility] by Dr. García. Patient is agreeable with plan of care. Additional pain control ordered while patient pending transport. Undiagnosed new problem with uncertain prognosis? @ -No Drug Therapy requiring intensive monitoring for toxicity (Heparin, Nitro, In sulin, Cardizem)? @ -No Were any procedures done? @ -No Diagnosis/symptom? @ -Postop complication Acute, or Chronic, or Acute on Chronic? @ Acute Uncomplicated (without systemic symptoms) or Complicated (systemic symptoms)? @ -Complicated Side effects of treatment? @ -No Exacerbation, Progression, or Severe Exacerbation? @ -No Poses a threat to life or bodily function? How? (Chest pain, [place], [place], pneumonia, PE, COPD, DKA, ARF, appy, cholecystitis, CVA, Diverticulitis, Homicidal, Suicidal, threat to staff... and all critical care pts) @ -Potentially, if leakage left unchecked or untreated or infectious in origin, patient could potentially become hypovolemic or progress to sepsisNoNoNoNoNoHosp ital courseNoNoNoNoNoneNone doneNone doneNone doneI reviewed and agree with nursing and triage notes - Lab Data Result diagrams: 12/13/23 16:32 12/13/23 16:32 Lab Results 12/13/23 12/13/23 12/13/23 Range/Units 16:32 16:32 16:45 WBC 5.6 (3.8-10.6) k/uL RBC 5.44 H (3.80-5.40) m/uL Hgb 12.9 (11.4-16.0) gm/dL Hct 40.5 (34.0-46.0) % MCV 74.4 L (80.0-100.0) fL MCH 23.8 L (25.0-35.0) pg MCHC 31.9 (31.0-37.0) g/dL RDW 16.5 H (11.5-15.5) % Plt Count 265 (150-450) k/uL MPV 7.6 Neutrophils % 64 % Lymphocytes % 27 % Monocytes % 5 % Eosinophils % 2 % Basophils % 0 % Neutrophils # 3.6 (1.3-7.7) k/uL Lymphocytes # 1.5 (1.0-4.8) k/uL Monocytes # 0.3 (0-1.0) k/uL Eosinophils # 0.1 (0-0.7) k/uL Basophils # 0.0 (0-0.2) k/uL Hypochromasia Slight Anisocytosis Slight Microcytosis Slight Sodium 140 (137-145) mmol/L Potassium 3.8 (3.5-5.1) mmol/L Chloride 102 (98-107) mmol/L Carbon Dioxide 29 (22-30) mmol/L Anion Gap 9 mmol/L BUN 13 (7-17) mg/dL Creatinine 1.41 H (0.52-1.04) mg/dL Est GFR (CKD-EPI)AfAm 51 (>60 ml/min/1.73 sqM) Est GFR (CKD-EPI)NonAf 44 (>60 ml/min/1.73 sqM) Glucose 123 H (74-99) mg/dL POC Glucose (mg/dL) 116 H (70-110) mg/dL POC Glu Pcb Design Engineer ID Belval, Shilpa Calcium 10.4 H (8.4-10.2) mg/dL Total Bilirubin 0.8 (0.2-1.3) mg/dL AST 36 (14-36) U/L ALT 27 (4-34) U/L Alkaline Phosphatase 109 (38-126) U/L C-Reactive Protein 1.3 H (<1.0) mg/dL Total Protein 8.2 (6.3-8.2) g/dL Albumin 4.8 (3.5-5.0) g/dL Disposition Clinical Impression: Post-operative complication Disposition: DC/TRNS INTERMEDIATE CARE FAC Condition: Good Is patient prescribed a controlled substance at d/c from ED?: No Referrals: Rissa Sanchez DO [Primary Care Provider] - 1-2 days - Out of Hospital Transfer - Req. Specs Out of Hospital Transfer - Requested Specifics: Other Emergency Center
[2023-12-13 16:43] LABS: Anisocytosis Slight; Basophils % (A) 0 %; Eosinophils # (A) 0.1 k/uL (0-0.7); Eosinophils % (A) 2 %; HCT 40.5 % (34.0-46.0); HGB 12.9 gm/dL (11.4-16.0); Hypochromasia Slight; Lymphocytes # (A) 1.5 k/uL (1.0-4.8); Lymphocytes % (A) 27 %; MCH 23.8 pg (25.0-35.0); MCHC 31.9 g/dL (31.0-37.0); MCV 74.4 fL (80.0-100.0); Mean Platelet Volume 7.6; Microcytosis Slight; Monocytes # (A) 0.3 k/uL (0-1.0); Monocytes % (A) 5 %; Neutrophils # (A) 3.6 k/uL (1.3-7.7); Neutrophils % (A) 64 %; Platelet Count 265 k/uL (150-450); RBC 5.44 m/uL (3.80-5.40); RDW 16.5 % (11.5-15.5); WBC 5.6 k/uL (3.8-10.6)
[2023-12-13 16:47] LABS: Glucose,Whole Blood 116 mg/dL (70-110)
[2023-12-13] MEDS: MORPHINE SULFATE 4 MG/ML SYRINGE IVP STA ×2 (16:47→21:42)
[2023-12-13] MEDS: ONDANSETRON 4 MG/2 ML VIAL IVP STA ×2 (16:47→21:56)
[2023-12-13] MEDS: SODIUM CHLORIDE 0.9% 1,000 ML IV ONE (16:49)
[2023-12-13 17:01] LABS: ALT 27 U/L (4-34); AST 36 U/L (14-36); African American GFR (CKD) 51 (>60 ml/min/1.73 sqM); Albumin 4.8 g/dL (3.5-5.0); Alkaline Phosphatase 109 U/L (38-126); Anion Gap 9 mmol/L; Blood Urea Nitrogen 13 mg/dL (7-17); C Reactive Protein 1.3 mg/dL (<1.0); Calcium 10.4 mg/dL (8.4-10.2); Carbon Dioxide 29 mmol/L (22-30); Chloride 102 mmol/L (98-107); Glucose 123 mg/dL (74-99); Non-African American GFR(CKD) 44 (>60 ml/min/1.73 sqM); Potassium 3.8 mmol/L (3.5-5.1); Sodium 140 mmol/L (137-145); Total Bilirubin 0.8 mg/dL (0.2-1.3); Total Protein 8.2 g/dL (6.3-8.2)
[2023-12-13 21:46] VITALS: BP 114/68; PULSE 74
[2023-12-13] MEDS: ONDANSETRON 4 MG/2 ML VIAL IM STA (21:54)
== END 2023-12-13 21:56 | disposition other institution (70) ==
LOC: EC 15:29
DX: R07.9 Chest pain, unspecified
CPT/HCPCS: 36415; 80053; 85025; 86140; 96365; 96366; 96375; 96376; 99285

== ENCOUNTER → 2024-02-06 | Outpatient (CLI) | payer MEDICARE, OTHER ==
[2024-02-06 09:11] VITALS: BP 130/90; PULSE 98; RESP 16; TEMP 98.3
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
== END ==
LOC: WWCWWP 08:25
PROVIDERS: ATTEND Surgery

== ENCOUNTER → 2024-03-08 | Outpatient (CLI) | payer MEDICARE, OTHER ==
--- NOTE | 2024-03-08 11:20 | USB ---
Reason for Exam: Clinical finding. Patient History: Menarche at age 11. First Full-Term at age 18. Breast cancer, right, age 47. Breast cancer, right, age 47. Other cancer, age 47. Breast cancer, right, age 47. 03/11/2023, Mastectomy on the Left side. 03/11/2023, Mastectomy on the Right side. 03/11/2023, Malignant US breast localization RT on the right side. 10/11/2022, Malignant US biopsy breast VAD RT on the right side. 09/27/2022, MG stereo VAD BX addl RT on the Right side. 09/27/2022, Malignant MG stereo VAD BX RT on the right side. 09/27/2022, Malignant US biopsy breast VAD RT on the right side. Technique: Method: Targeted. Prior Study Comparison: 09/19/2022 Bilateral MG 3D diag mammo w/cad [facility], [facility]. 09/27/2022 Right MG diagnostic mammo RT wo CAD, [facility]. 10/11/2022 Right MG diagnostic mammo RT wo CAD, [facility]. Findings: The lower section of the breast of the right breast, the axilla of the right breast and the retroareolar of the right breast were scanned. Targeted ultrasound along the inferior aspect of the right breast 3:00 to 9:00 position including scanning of the subareolar region and axilla. There is an underlying breast implant. An area of vertically oriented shadowing at the 8:00 position, 7 cm from the nipple measures 7 x 4 x 3 mm, possible scar tissue as a similar smaller adjacent area is present on antiradial imaging. Precautionary tissue sampling is recommended. No other solid or cystic lesion or axillary lymphadenopathy. Overall Assessment: Suspicious, BI-RAD 4 Management: Ultrasound Core Biopsy of the right breast. To exclude early local recurrence. Scar tissue suspected. Results were given to the patient verbally at the time of exam. [facility], , 03/08/2024 11:17 AM. Electronically signed and approved by: Dawn Aguilar M.D. Radiologist
== END | disposition home or self-care (01) ==
LOC: RADUSWWP 10:33
PROVIDERS: ATTEND Surgery
DX: N63.10 Unspecified lump in the right breast, unspecified quadrant (principal); Z85.3 Personal history of malignant neoplasm of breast

== ENCOUNTER → 2024-03-22 | Day surgery (SDC) | payer MEDICARE, OTHER ==
--- NOTE | 2024-03-31 08:41 | MM ---
Reason for Exam: Post Procedure Mammogram. Last mammogram was performed 1 year(s) and 6 month(s) ago. Patient History: Menarche at age 11. First Full-Term at age 18. Breast cancer, right, age 47. Breast cancer, right, age 47. Other cancer, age 47. Breast cancer, right, age 47. 03/11/2023, Mastectomy on the Left side. 03/11/2023, Mastectomy on the Right side. 03/11/2023, Malignant US breast localization RT on the right side. 10/11/2022, Malignant US biopsy breast VAD RT on the right side. 09/27/2022, MG stereo VAD BX addl RT on the Right side. 09/27/2022, Malignant MG stereo VAD BX RT on the right side. 09/27/2022, Malignant US biopsy breast VAD RT on the right side. Prior Study Comparison: 09/19/2022 Bilateral MG 3D diag mammo w/cad [facility], [facility]. 09/27/2022 Right MG diagnostic mammo RT wo CAD, [facility]. 10/11/2022 Right MG diagnostic mammo RT wo CAD, [facility]. Pathology Description: Location: 8 o'clock. Marker Left Behind. Needle Type: Mammotome Cores: 1 Skin Nicks: 1 Gauge: 13 The procedure of ultrasound guided core biopsy was explained to the patient. Benefits, alternatives, and risks were discussed. Specific discussion regarding possible breast prosthesis rupture was performed. An informed consent was then obtained. A timeout was performed. The patient was placed in supine positioning for imaging and for the procedure. The overlying skin was prepped and draped in usual sterile fashion. Lidocaine was used as anesthetic into the skin and subcutaneous tissue up to area of concern in the right breast. A small skin ruthie was made with surgical scalpel. Under ultrasound guidance, a 12-gauge vacuum assisted biopsy gun device was used to obtain one core sample. A biopsy clip was left in lesion. Hydromark coil core marker was placed. The patient tolerated the procedure well without any immediate complication. The breast prosthesis was intact upon completion of the examination. The patient was kept in the radiology department for short stay after the procedure and then discharged home in stable condition. Postprocedure mammogram: The patient was transferred to mammography for physician ordered post procedure mammogram for clip placement verification. Post procedure mammogram demonstrates the clip in appropriate placement. Clip is identified in the lateral craniocaudal view but not identified on mediolateral oblique projection may be obscured by the prosthesis. Impression: Successful ultrasound guided core biopsy of area of concern in the right breast, full pathology results to follow. Recommendations: 1. Recommendations are pending pathology results. [facility], , 03/22/2024 4:00 PM. Pathology Results: Result: Malignant, Invasive ductal carcinoma. Pathology and radiology were reviewed. Findings are concordant. RIGHT BREAST, 8:00, 7 CMFN, NEEDLE CORE BIOPSY: Invasive moderately differentiated ductal carcinoma (Grade 2). See Surgical Pathology Cancer Case Summary. Overall Assessment: Malignant Assessment: MG diagnostic mammo RT wo CAD - Right: Known biopsy proven malignancy, BI-RAD 6. Management: Surgical Consultation of the right breast. Electronically signed and approved by: Erwin Wright D.O. Radiologis
== END ==
LOC: RADUSWWP 12:45
PROVIDERS: ATTEND Surgery
DX: C50.911 Malignant neoplasm of unspecified site of right female breast (principal); R68.89 Other general symptoms and signs
CPT/HCPCS: 88305; 88342; 88341; 77065; 19083; A4648

== ENCOUNTER → 2024-04-01 | Outpatient (CLI) | payer MEDICARE, OTHER ==
[2024-04-01 08:35] VITALS: BP 105/79; PULSE 110; RESP 17; TEMP 98.7
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
== END ==
LOC: WWCWWP 08:05
PROVIDERS: ATTEND Surgery
DX: C50.411 Malignant neoplasm of upper-outer quadrant of right female breast (principal); F17.290 Nicotine dependence, other tobacco product, uncomplicated; Z90.13 Acquired absence of bilateral breasts and nipples; Z17.0 Estrogen receptor positive status [ER+]; Z17.21 Progesterone receptor positive status

== ENCOUNTER → 2024-04-08 | Outpatient (CLI) | payer MEDICARE, OTHER ==
--- NOTE | 2024-04-08 11:09 | PE ---
EXAMINATION TYPE: PET CT fusion skull to thigh DATE OF EXAM: 04/08/2024 CLINICAL INDICATION:Female, 48 years old with history of C50.511 breast ca; right breast cancer 8:00. TECHNIQUE: Following the intravenous administration of 10.27 mCi of F-18 FDG, whole body images are performed from the skull base to the midthigh. Images are reviewed on the computer in the coronal, axial, and sagittal planes. Reconstructed rotating images are created on independent workstation and reviewed on the computer. A non-contrast CT is performed in conjunction with the PET scan. Glucose level 136 mg/dL CT DLP: 1136 mGycm, Automated exposure control for dose reduction was used. COMPARISON: CT None, PET/CT 11/01/2022, MRI: None FINDINGS: Mediastinal SUV mean is 2.3. Hepatic parenchyma SUV mean is 2.9. SKULL BASE AND NECK: No suspicious radiotracer activity. CHEST, MEDIASTINUM, AND HILAR REGION: Interval postsurgical changes to the right breast with breast implant placed. There is mild uptake al lauri the anterior margin of the breast implant more medially that extends towards the skin max SUV 6.7 and more laterally max SUV 6.9. Interval postsurgical changes to the left breast mild uptake along the suspected surgical bed max SUV 5.4 on the left. No enlarged lymph nodes are identified. There is focal uptake near the medial aspect of the pectorali s major within the muscle itself max SUV 5.7. Right middle lobe streaky edema with out significant uptake max SUV 2.0. ABDOMEN AND PELVIS: No suspicious radiotracer activity. MUSCULOSKELETAL STRUCTURES: No suspicious radiotracer activity. Suspected physiologic uptake within the bilateral neck musculatur e, back musculature, and intercostal muscles. OTHER CT: Fat-containing umbilical hernia. Scattered colonic diverticula. The uterus appears surgically absent. The heart is mildly enlarged for size. Low lung volumes present. IMPRESSION: 1. Postsurgical changes to the breast with mild uptake anterior to the breast implant on the right a nd mild uptake within the surgical bed on the left. Findings are favored to be postsurgical change. A ttention on follow-up imaging. 2. Uptake within the medial aspect of the right pectoralis major muscle possibly physiologic attenti on follow-up imaging. [facility], , 04/08/2024 11:06 AM
== END | disposition home or self-care (01) ==
LOC: RADPETMAIN 07:52
PROVIDERS: ATTEND Surgery
DX: C50.511 Malignant neoplasm of lower-outer quadrant of right female breast (principal); Z98.82 Breast implant status
CPT/HCPCS: 78815; A9552

== ENCOUNTER → 2024-07-15 | Outpatient (CLI) | payer MEDICARE, OTHER ==
--- NOTE | 2024-07-15 10:08 | PE ---
EXAMINATION TYPE: PET CT fusion skull to thigh DATE OF EXAM: 07/15/2024 CLINICAL INDICATION:Female, 49 years old with history of C50.511 BREAST CANCER; TECHNIQUE: Following the intravenous administration of 11.6 mCi of F-18 FDG, whole body images are performed from the skull base to the Mid thigh. Images are reviewed on the computer in the coronal, axial, and sagittal planes. Reconstructed rotating images are created on independent workstation and reviewed on the computer. A non-contrast CT is performed in conjunction with the PET scan. Glucose level 139 mg/dL CT DLP: 10:15 mGycm, Automated exposure control for dose reduction was used. COMPARISON: CT None, PET/CT 04/08/2024, MRI: None FINDINGS: Mediastinal SUV mean is 2.3. Hepatic parenchyma SUV mean is 2.9. SKULL BASE AND NECK: No suspicious radiotracer activity. CHEST, MEDIASTINUM, AND HILAR REGION: Interval postsurgical changes to the right breast with breast implant placed. The mild uptake along t he anterior margin of the breast implant has resolved. Postsurgical changes to the left breast mild uptake along the suspected surgical bed max SUV 3.9, pre viously 5.4 on the left. No enlarged lymph nodes are identified. Uptake within the medial right pectoris major has resolved. Right middle lobe streaky edema remains without suspicious uptake. ABDOMEN AND PELVIS: No suspicious radiotracer activity. MUSCULOSKELETAL STRUCTURES: No suspicious radiotracer activity. Diffuse uptake throughout the osseous structures compatible with colony stimulating factor. Suspected physiologic uptake within the bilateral neck musculature, back m usculature, and intercostal muscles. OTHER CT: Fat-containing umbilical hernia. Scattered colonic diverticula. The uterus appears surgically absent. The heart is mildly enlarged for size. Low lung volumes present. IMPRESSION: 1. Postsurgical changes to the breasts. No suspicious uptake in today's exam. 2. Uptake within the medial aspect of the right pectoralis major has resolved. 3. Diffuse uptake throughout the osseous structures compatible with colony stimulating factor. [facility], , 07/15/2024 10:06 AM
== END | disposition home or self-care (01) ==
LOC: RADPETMAIN 07:05
PROVIDERS: ATTEND Surgery
DX: C50.511 Malignant neoplasm of lower-outer quadrant of right female breast (principal); Z98.890 Other specified postprocedural states
CPT/HCPCS: 78815; A9552

== ENCOUNTER → 2024-08-06 | Outpatient (CLI) | payer MEDICARE, OTHER ==
[2024-08-06 13:52] VITALS: BP 102/94; PULSE 116; RESP 18; TEMP 98
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
== END ==
LOC: WWCWWP 12:54
PROVIDERS: ATTEND Surgery
DX: C76.1 Malignant neoplasm of thorax (principal); F17.200 Nicotine dependence, unspecified, uncomplicated

== ENCOUNTER → 2024-08-09 | Outpatient (CLI) | payer MEDICARE, OTHER ==
--- NOTE | 2024-08-10 10:30 | USB ---
Reason for Exam: Follow-up at short interval from prior study. Patient History: Menarche at age 11. First Full-Term at age 18. Breast cancer, right, age 47. Breast cancer, right, age 47. Other cancer, age 47. Breast cancer, right, age 47. Breast cancer, right, age 48. 03/22/2024, Malignant US biopsy breast VAD RT on the right side. 03/11/2023, Mastectomy on the Left side. 03/11/2023, Mastectomy on the Right side. 03/11/2023, Malignant US breast localization RT on the right side. 10/11/2022, Malignant US biopsy breast VAD RT on the right side. 09/27/2022, MG stereo VAD BX addl RT on the Right side. 09/27/2022, Malignant MG stereo VAD BX RT on the right side. 09/27/2022, Malignant US biopsy breast VAD RT on the right side. Technique: Method: Targeted. Prior Study Comparison: 09/27/2022 Right MG diagnostic mammo RT wo CAD, [facility]. 10/11/2022 Right MG diagnostic mammo RT wo CAD, [facility]. 03/22/2024 Right MG diagnostic mammo RT wo CAD, [facility]. Findings: The lower section of the breast of the right breast and the axilla of the right breast were scanned. Targeted ultrasound demonstrates a 6 x 3 mm irregular hypoechoic area abutting the implant at o'clock position 7 cm distance from nipple in the right breast. This area is stable or slightly less prominent versus March 08, 2024 study. Adjacent biopsy clip is identified on today's study. No new suspicious lesions are seen. Overall Assessment: Known biopsy proven malignancy, BI-RAD 6 Management: Surgical Consultation of the right breast. Appropriate clinical management for recently diagnosed right breast cancer. A clinical breast exam by your physician is recommended on an annual basis and results should be correlated with mammographic findings. This exam should not preclude additional follow-up of suspicious palpable abnormalities. Results were given to the patient verbally at the time of exam. [facility], , 08/09/2024 7:35 AM. Electronically signed and approved by: Herrera Jacobson M.D.
== END | disposition home or self-care (01) ==
LOC: RADUSWWP 06:58
PROVIDERS: ATTEND Surgery
DX: Z85.3 Personal history of malignant neoplasm of breast (principal); Z90.13 Acquired absence of bilateral breasts and nipples

== ENCOUNTER → 2024-08-12 | Outpatient (CLI) | payer MEDICARE, OTHER ==
[2024-08-12 11:18] VITALS: BP 126/83; PULSE 117; RESP 18; TEMP 98.1
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
== END ==
LOC: WWCWWP 10:42
PROVIDERS: ATTEND Surgery
DX: C50.911 Malignant neoplasm of unspecified site of right female breast (principal); F12.90 Cannabis use, unspecified, uncomplicated; F17.200 Nicotine dependence, unspecified, uncomplicated

== ENCOUNTER → 2024-08-27 | Outpatient (CLI) | payer MEDICARE, OTHER ==
[2024-08-27 11:58] VITALS: BP 112/76; PULSE 107; RESP 17; TEMP 98.4
--- NOTE | 2024-08-27 12:28 | P.PN ---
Subjective Progress Note Date: 08/27/24 Principal diagnosis: right breast Renee is a 49 year old female diagnosed with a right breast invasive ductal carcinoma in 2022. At that time she had neoadjuvant treatment the lesion was ER positive AR positive and HER2 negative. A lymph node biopsy preoperatively was positive for invasive ductal carcinoma as well. Stereotactic biopsy of 2 additional areas of microcalcifications both showed grade 2/3 invasive ductal carcinoma and associated DCIS and comedonecrosis. The patient subsequently completed 3 cycles of Adriamycin and Cytoxan. She declined the fourth cycle and subsequently completed this on 01-22-2023. She decided against proceeding with more chemotherapy and proceeded to a bilateral mastectomy with a right node biopsy on 03-11-2023. Her pathology revealed marked treatment response with a 2 mm residual invasive ductal carcinoma in the right breast. She did have extensive residual DCIS. She also had good treatment response in the lymph nodes with residual disease in 3 of 6 isolated tumor cells with extranodal extension. Following her surgery she was recommended to have radiation therapy which she refused and hormonal therapy and a PARP targeted treatment. She did not follow- up with this. She did have some difficulty with her reconstruction requiring removal of the implants as well as drainage of an infected fluid on the left side. She was recommended to take anastrozole and Lynparza adjuvantly which she did start the last week of August 2023. The patient however discontinued this regimen and did have some additional plastic surgical procedures during that time. She was seen back in the office in March 2020 for and had developed some discomfort in the lower inner aspect of the reconstructed right breast. An ultrasound of the area was performed and a lesion was identified which was biopsied and this was positive for invasive ductal carcinoma. This was ER positive AR positive and HER2 negative. A PET scan was done which showed no evidence of distant disease. There was low-level uptake in the surgical bed on the left and also in the soft tissues in the reconstructed right breast. MRI confirmed enhancement in this area with possibility of a subpectoral lymph node involvement. The patient was felt to have locally recurrent disease that was still amiable to definitive treatment. She was started on carboplatin and Taxol and is status post 6 cycles completing these on 08 19 24. PET scan after 4 cycles showed essential resolution of FDG uptake in this area. There is marked improvement on physical exam findings in conjunction with this. The patient's case has been discussed with medical oncology and an ultrasound was performed which was reveals residual 3 x 6 mm area in the chest wall. She is scheduled for surgical resection. Her case was presented at tumor board on 08-24-2024. Recommendation was for bilateral mastectomy with radiation to the right chest wall and no reconstruction. She is BRCA2 positive Note Dr. Ritter medical oncology 08/26/24 reviewed/in agreement with surgery Caffeine: Decaf tea Nicotine: Close cigars 12/pack she uses it every 3 days Chocolate: Daily Family history: Mother: at 46 of colon cancer Sister: Chemotherapy uncertain of the type of cancer Hormonal history: Menarche: 12 [id number] age at first : 18, breast-fed: No Periods: Full hysterectomy in 2018 done for endometriosis/bleeding no cancer Hormones: Negative control post: Negative Surgical history: Total abdominal hysterectomy 2018 Umbilical hernia repaired with mesh Left femur fracture rods and pins in place Medical history: Arthritis: Anxiety/depression Fibromyalgia Hypertension High cholesterol Connective tissue autoimmune disorder Tarsal tunnel in both feet Dry eyes Diabetic Social history: Nicotine: As above Alcohol: Negative Drugs: Marijuana daily for relaxation and anxiety Constitutional: Reports night sweats Eyes: Dry eyes HEENT: Denies sore throat Breast: As HPI PI Cardiovascular: Reports shortness of breath Respiratory: Denies cough GI: Irritable bowel syndrome : Denies dysuria denies hematuria Menstruation: Status post hysterectomy Musculoskeletal: As reported Integument: Eczema in her hands Neuro neurologic: Negative Psychiatric: Anxiety Endocrine: Fatigue Objective - Vital Signs Vital signs: Vital Signs Temp 98.4 F 08/27/24 11:56 Pulse 107 H 08/27/24 11:56 Resp 17 08/27/24 11:56 BP 112/76 08/27/24 11:56 Pulse Ox 97 08/27/24 11:56 FiO2 Intake & Output 08/26/24 08/27/24 08/27/24 18:59 06:59 18:59 Weight 149.685 kg - Constitutional General appearance: Present: cooperative - EENT Eyes: Present: EOMI ENT: Present: hearing grossly normal - Neck Neck: Present: normal ROM - Respiratory Respiratory: bilateral: CTA - Cardiovascular Rhythm: regular Heart sounds: normal: S1, S2 - Integumentary Integumentary: Present: normal turgor - Musculoskeletal Musculoskeletal: Present: gait normal - Psychiatric Psychiatric: Present: A&O x's 3, appropriate affect, intact judgment & insight - Additional findings Additional findings: Chest wall examination: Reconstructed right breast/left breast implant has been removed Palpation: Right chest wall: Scars from prior surgery, at this time nothing is palpable of concern Right axilla: No adenopathy of concern Left chest wall: Scars from prior surgery nothing palpable of concern Left axilla: No adenopathy of concern Assessment and Plan Assessment: Impression: BRCA2 positive patient with recurrent disease right chest wall Plan: Needle localization ultrasound abnormality right chest wall which was biopsied and positive right chest wall as well as methylene blue injection of this area preoperative, right residual tissue chest wall removal and removal of right breast implant with possible VY advancement flap , left chest wall residual breast tissue and skin removal of redundant skin and any residual breast tissue as well as possible VY advancement flap Risk and benefits of the procedure discussed with the patient. Risk include but are not limited to bleeding, infection, reaction to the anesthetic. She understands that she may have some redundant tissue in the axillary areas although we will do our best to reduce this is much as possible. Consent: I have discussed the risks, benefits and alternative therapies for the above-mentioned procedure and for both sedation/analgesia as well as necessary blood product administration, if indicated, as they pertain to this patient. The patient has indicated understanding and acceptance of the risks and procedures discussed. CC: Dr. Daily
== END ==
LOC: WWCWWP 10:55
PROVIDERS: ATTEND Surgery
DX: R22.2 Localized swelling, mass and lump, trunk (principal); Z15.09 Genetic susceptibility to other malignant neoplasm; Z15.01 Genetic susceptibility to malignant neoplasm of breast; F12.90 Cannabis use, unspecified, uncomplicated; F17.290 Nicotine dependence, other tobacco product, uncomplicated

== ENCOUNTER 2024-09-20 06:42 | Day surgery (SDC) | payer MEDICARE, OTHER ==
[2024-09-20] MEDS: IV FLUID CONTINUATION 1,000 ML IV ONE ×3 (06:58→17:15)
[2024-09-20] MEDS ORDERED: LIDOCAINE 1% (10MG/ML) FOR IV START INTRADERMA PRN (07:05)
[2024-09-20] MEDS: ALPRAZolam 0.5 MG TAB PO STA (07:39)
[2024-09-20] MEDS: ACETAMINOPHEN TAB 500 MG TAB PO PRN (07:39)
[2024-09-20 07:41] LABS: Glucose,Whole Blood 108 mg/dL (70-110)
[2024-09-20] MEDS: LACTATED RINGERS 1,000 ML IV SCH (07:47)
[2024-09-20] MEDS: SODIUM BICARB 8.4% 50 ML VIAL (1 MEQ/ML) MISCELLANE ONE (08:23)
[2024-09-20] MEDS: LIDOCAINE 1% INJ 10MG/ML (20 ML MDV) SQ ONE ×3 (08:23→15:55)
[2024-09-20] MEDS: METHYLENE BLUE 50 MG/10 ML VIAL MISCELLANE ONE (08:27)
[2024-09-20] MEDS: DEXAMETHASONE SOD PHOSPHATE 4 MG/ML 1 ML VIAL IV ONE (08:53)
[2024-09-20] MEDS: ONDANSETRON 4 MG/2 ML VIAL IVP ONE (08:53)
[2024-09-20] MEDS: HEPARIN SODIUM,PORCINE 5,000 UNIT/ML 1 ML VIAL SQ PRN (08:54)
[2024-09-20] MEDS: SCOPOLAMINE 1 MG/72 HR PATCH TRANSDERM ONE (08:54)
[2024-09-20] MEDS ORDERED: ROCURONIUM 10 MG/ML (5 ML VIAL) IV ONE (10:50)
[2024-09-20] MEDS ORDERED: fentaNYL (PF) 50 MCG/ML 2 ML AMP ONE (10:50)
[2024-09-20] MEDS ORDERED: HYDROmorphone (PF) 1 MG/ML ONE (10:50)
[2024-09-20] MEDS ORDERED: LIDOCAINE 1% INJ 10MG/ML (20 ML MDV) ONE (10:50)
[2024-09-20] MEDS ORDERED: PROPOFOL 10 MG/ML 20 ML VIAL IV ONE (10:50)
[2024-09-20] MEDS ORDERED: MIDAZOLAM 2 MG/2 ML VIAL ONE (10:50)
[2024-09-20] MEDS ORDERED: ESMOLOL 100 MG/10 ML VIAL ONE (10:50)
[2024-09-20] MEDS ORDERED: SUCCINYLCHOLINE CHLORIDE 200 MG/10 ML VIAL IV ONE (10:50)
[2024-09-20] MEDS ORDERED: PHENYLEPHRINE-0.9% NACL SYG 1,000 MCG/10 ML SYRINGE ONE (10:50)
[2024-09-20] MEDS: ceFAZolin 3 GM in SODIUM CHLORIDE 0.9% 100 ML IVPB PRN (10:57)
[2024-09-20 14:36] LABS: Glucose,Whole Blood 165 mg/dL (70-110)
--- NOTE | 2024-09-20 15:28 | P.BCAON ---
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/failed left breast implant reconstruction Postoperative Diagnosis: Same Procedure(s) Performed: Revision left chest wall incision from a skin sparing mastectomy, VY advancement flap in the axilla, right breast removal of implant, removal of soft tissue lesion, revision of scar from skin sparing mastectomy procedure Anesthesia: MANDAA Surgeon: Vibha Cantu Estimated Blood Loss (ml): 100 IV fluids (ml): 1,500 Pathology: other (Redundant skin right chest wall/resection of soft tissue subcutaneous nodule/redundant skin left chest wall/right breast implant) Condition: stable Disposition: floor Indications for Procedure: Biopsy-proven subcutaneous recurrence right chest wall of cancer, PET scan increased uptake in area of implant right chest wall failed left breast reconstruction with redundant tissue and skin patient for revision of this site Operative Findings: Redundant skin bilateral/implant right chest wall Description of Procedure: The patient was initially seen in the radiology department where needle localization via ultrasound guidance was performed of the subcutaneous recurrent cancer nodule in the right chest wall. Following this she was brought to the operative suite. Following induction of anesthesia the left side of the chest was approached initially. The tissue was reexcised with redevelopment of superior and inferior skin flaps. The extent of the incision was approximately 33 cm. At the axillary aspect of the incision a dogear was present in 2 to decrease the effect of this VY advancement flap 2 cm x 2 cm was developed. After the redundant skin and subcutaneous tissue was removed the wound was well irrigated. Surgicel in powder form was placed. A #10 VIMAL drain was placed. The subcutaneous tissue was brought together using 3-0 Vicryl interrupted suture. This was followed by a 3- 0 Vicryl's running suture. This was followed by a 4-0 Monocryl. The drain was secured with a 3-0 nylon suture. The right chest wall was then approached. An incision for superior and inferior skin flaps were developed. This was carried down to the muscle of the chest wall. The implant was prepectoral, it was identified and removed. The tissue graft which was surrounding the implant was completely removed as well. After this had been performed the redundant skin was measured and removed. A #10 VIMAL drain was placed. The wound was well irrigated. Surgicel in powder form was placed. The subcutaneous tissue was closed using 3-0 Vicryl suture. A running 3-0 Vicryl suture was then placed. This was followed by a running 4-0 Monocryl suture. 20 cc of 1% lidocaine were injected into the incision. Surgical glue was placed at each site. Sterile dressings were applied. The patient tolerated the procedure in stable condition. All instrument and sponge counts were correct at the end of the case.
[2024-09-20] MEDS ORDERED: NALOXONE 0.4 MG/ML 1 ML VIAL IV PRN (15:39)
[2024-09-20] MEDS ORDERED: MELATONIN 3 MG TABLET PO PRN (15:39)
[2024-09-20 16:42] LABS: Glucose,Whole Blood 143 mg/dL (70-110)
[2024-09-20] MEDS: HYDROmorphone 0.5 MG/0.5 ML SYRINGE IVP PRN (17:14)
[2024-09-20] MEDS: droPERidol 2.5 MG/ML VIAL IVP PRN (17:39)
[2024-09-20] MEDS: LABETALOL SYRINGE 5 MG/ML (4 ML SYR) IVP STA (17:48)
[2024-09-20 18:38] VITALS: TEMP 97.9
[2024-09-21] MEDS: HYDROmorphone 1 MG/ML 1 ML SYRINGE IVP PRN (00:10)
[2024-09-21] MEDS: HEPARIN SODIUM,PORCINE 5,000 UNIT/ML 1 ML VIAL SQ SCH (00:20)
[2024-09-21] MEDS: METHYLENE BLUE 50 MG, DEXTROSE 5% IN WATER 50 ML MISCELLANE ONE (00:22)
[2024-09-21] MEDS: LABETALOL 5 MG/ML VIAL MDV IVP STA (00:23)
[2024-09-21] MEDS: SODIUM CHLORIDE 0.9% 1,000 ML IV SCH (00:25)
[2024-09-21 05:45] LABS: Basophils # (A) 0.03 10*3/uL (0.00-0.10); Basophils % (A) 0.4 %; Eosinophils # (A) 0.01 10*3/uL (0.04-0.35); Eosinophils % (A) 0.1 %; HCT 33.6 % (37.2-46.3); HGB 10.4 g/dL (12.0-15.0); Lymphocytes # (A) 1.51 10*3/uL (0.90-5.00); Lymphocytes % (A) 18.5 %; MCH 26.9 pg (27.0-32.0); MCV 86.8 fL (80.0-97.0); Mean Platelet Volume 10.7 fL (9.5-12.2); Monocytes # (A) 0.87 10*3/uL (0.20-1.00); Monocytes % (A) 10.7 %; Neutrophils # (A) 5.72 10*3/uL (1.80-7.70); Neutrophils % (A) 70.1 %; Platelet Count 183 10*3/uL (140-440); RBC 3.87 10*6/uL (4.10-5.20); RDW 15.1 % (11.5-14.5); WBC 8.16 10*3/uL (4.50-10.00)
[2024-09-21] MEDS: HYDROcodone/APAP 5-325MG 1 EACH TAB PO PRN (07:18)
--- NOTE | 2024-09-21 09:03 | P.PN ---
Subjective Progress Note Date: 09/21/24 Principal diagnosis: Postop day #1 removal of right breast implant, revision of scar, revision of scar left chest wall with removal of redundant tissue and VY advancement flap Renee is a 49-year-old -[place] female who is postop day #1 revision of left mastectomy scar with VY advancement flap, removal of right breast implant and revision of mastectomy scar. Postoperatively she is doing well however she is requiring IV medication for pain control at this time. Hemoglobin 10.4, white count 8.6. VIMAL output serous in nature left drain 20 cc, right drain 5 cc. Objective - Vital Signs Vital signs: Vital Signs Temp 97.9 F 09/20/24 18:35 Pulse 91 09/21/24 03:22 Resp 18 09/21/24 03:22 BP 106/74 09/21/24 03:22 Pulse Ox 100 09/21/24 03:22 FiO2 Intake & Output 09/20/24 09/21/24 09/21/24 18:59 06:59 18:59 Intake Total 2400 Output Total 100 25 Balance 2300 -25 Weight 151.4 kg Intake: IV 2400 Output: Drainage 25 Left Chest 20 Right Chest 5 Estimated Blood Loss 100 Other: Voiding Method Indwelling Catheter # Voids 1 - Constitutional General appearance: Present: cooperative - EENT Eyes: Present: EOMI ENT: Present: hearing grossly normal - Neck Neck: Present: normal ROM - Respiratory Respiratory: bilateral: CTA - Cardiovascular Rhythm: regular Heart sounds: normal: S1, S2 - Integumentary Integumentary Comment(s): Incisions clean and dry bilateral, VIMAL output serous in nature - Psychiatric Psychiatric: Present: A&O x's 3, appropriate affect, intact judgment & insight - Labs CBC & Chem 7: 09/21/24 05:25 Labs: Abnormal Lab Results - Last 24 Hours (Table) 09/20/24 09/20/24 09/21/24 Range/Units 14:33 16:40 05:25 RBC 3.87 L (4.10-5.20) 10*6/uL Hgb 10.4 L (12.0-15.0) g/dL Hct 33.6 L (37.2-46.3) % MCH 26.9 L (27.0-32.0) pg MCHC 31.0 L (32.0-37.0) g/dL Eosinophils # 0.01 L (0.04-0.35) 10*3/uL POC Glucose (mg/dL) 165 H 143 H (70-110) mg/dL Assessment and Plan Assessment: Impression: Patient doing well postop day #1/is still requiring IV pain medicine for pain control Plan: Probable discharge later today Continue present care
--- NOTE | 2024-09-21 12:36 | P.DS ---
Providers Attending physician: Vibha Cantu Consults: 09/20/24 15:45 Consult Physician Routine Consulting Provider: Moo Daily Consult Reason/Comments: medical managment Do you want consulting provider notified?: Yes Primary care physician: Moo Daily MD Hospital Course: Patient underwent bilateral incision revision with resection of skin and subcutaneous tissue and removal of right bresat implant. She is doing well post op day one. Procedures: bilateral incisoin revision and right breast implant removal left revision with a YV advancement flap. Patient Condition at Discharge: Good Plan - Discharge Summary Discharge Rx Participant: No New Discharge Prescriptions: New oxyCODONE HCL [OxyIR] 5 mg PO Q6H PRN 3 Days #20 tab PRN Reason: pain No Action Ibuprofen [Advil] 800 mg PO Q6HR PRN PRN Reason: Pain cycloSPORINE 0.05% OPHTH SOLN [Restasis] 1 applicator BOTH EYES Q12H busPIRone HCL 35 mg PO BID Cetirizine HCl [Zyrtec] 10 mg PO DAILY Celecoxib [CeleBREX] 200 mg PO DAILY Baclofen 10 mg PO HS Semaglutide [Ozempic] 5 mg SQ TU Albuterol Inhaler [Ventolin Hfa Inhaler] 1 - 2 puff INHALATION Q6H PRN PRN Reason: Shortness Of Breath Triamterene/Hydrochlorothiazid [Triamterene-Hctz 37.5-25 mg Cp] 1 each PO DAILY Pregabalin [Lyrica] 150 mg PO DAILY QUEtiapine [SEROquel] 100 mg PO HS DULoxetine HCL [Cymbalta] 60 mg PO HS Discharge Medication List Cetirizine HCl [Zyrtec] 10 mg PO DAILY 11/25/17 [History] Ibuprofen [Advil] 800 mg PO Q6HR PRN 11/25/17 [History] busPIRone HCL 35 mg PO BID 11/25/17 [History] cycloSPORINE 0.05% OPHTH SOLN [Restasis] 1 applicator BOTH EYES Q12H 11/25/17 [History] Baclofen 10 mg PO HS 09/19/22 [History] Celecoxib [CeleBREX] 200 mg PO DAILY 09/19/22 [History] DULoxetine HCL [Cymbalta] 60 mg PO HS 09/19/22 [History] Pregabalin [Lyrica] 150 mg PO DAILY 09/19/22 [History] QUEtiapine [SEROquel] 100 mg PO HS 09/19/22 [History] Triamterene/Hydrochlorothiazid [Triamterene-Hctz 37.5-25 mg Cp] 1 each PO DAILY 09/19/22 [History] Semaglutide [Ozempic] 5 mg SQ TU 06/18/23 [History] Albuterol Inhaler [Ventolin Hfa Inhaler] 1 - 2 puff INHALATION Q6H PRN 09/17/24 [History] oxyCODONE HCL [OxyIR] 5 mg PO Q6H PRN 3 Days #20 tab 09/20/24 [Rx] Follow up Appointment(s)/Referral(s): Vibha Cantu MD [STAFF PHYSICIAN] - 1-2 Days Patient Instructions/Handouts: *Surgery [facility] - Scopalamine Patch Instructions Discharge Disposition: HOME SELF-CARE
[2024-09-21 12:55] VITALS: BP 126/77; PULSE 88; RESP 16
--- NOTE | 2024-09-26 16:14 | P.CONS ---
History of Present Illness - Reason for Consult Consult date: 09/21/24 Medical management - Chief Complaint Revision surgery for skin scar and removal of right breast implant. - History of Present Illness Patient is a 49-year-old female with a past medical history of hypertension, hyperlipidemia, fibromyalgia, diabetes type 2, patient is on Ozempic, COPD, history of right breast invasive ductal carcinoma status post surgery and chemo, obstructive sleep apnea not on CPAP, prior history of smoking and morbid obesity with a BMI Patient underwent bilateral incision revision with resection of skin scar and subcutaneous tissue and removal of right breast implant. Postoperative day 1 Patient currently denies any complaints of chest pain or shortness of breath. S oreness at the surgical site. No fever no chills. No cough or sputum production. No nausea vomiting abdominal pain or diarrhea. No headache or dizziness. Laboratory data showed WBC 8.1 hemoglobin 10.4 and platelets 183 Review of Systems Constitutional: Patient denies any fever or chills . No generalized weakness or weight loss. Abdomen: Patient denied nausea vomiting and diarrhea and abdominal pain. Cardiovascular: Patient denies any chest pain or short of breath no palpitations. Respiratory: patient denied any cough or sputum production. No shortness of b reath Neurologic: Patient denied any numbness or tingling. no headache. Musculoskeletal: Patient denies any complaints of joint swelling or deformity. Skin: Negative Psychiatric: Negative Endocrine: No heat or cold intolerance. No recent weight gain. Genitourinary: No dysuria or hematuria. All other 14 point ROS negative except the above Past Medical History Past Medical History: Cancer, COPD, Diabetes Mellitus, Fibromyalgia, Hyperlipidemia, Hypertension, Memory Impairment, Osteoarthritis (OA), Rheumatoid Arthritis (RA), Sleep Apnea/CPAP/BIPAP, Syncope, Vascular Disorder Additional Past Medical History / Comment(s): prediabetic, No CPAP use. Mild Emphysema. Carpal and tarsal tunnel syndrome. Connective tissue problems - auto immune disorder. Right breast invasive ductal cancer - surg & chemo. Hx fractured right foot, left knee 01/04 - uses cane as needed. Slight circulation issues in legs & james foot neuropathy. pt reports post chemo brain fog & short term memory impairment, dizziness & occasional falls-last fall 2 days ago, last syncope 3 weeks ago- pt states PCP aware. History of Any Multi-Drug Resistant Organisms: None Reported Past Surgical History: Breast Surgery, Section, Hernia Repair, Hysterectomy, Orthopedic Surgery Additional Past Surgical History / Comment(s): +right breast bx, james mastectomy, breast reconstruction surg, 8 residual breast surgeries per pt for infection/complications, UMBILICAL HERNIA REPAIR WITH MESH, ORIF left femur, wisdom teeth extraction, Past Anesthesia/Blood Transfusion Reactions: Postoperative Nausea & Vomiting (PONV) Additional Past Anesthesia/Blood Transfusion Reaction / Comm: no blood transfusion hx Smoking Status: Former smoker - Past Family History Father History Unknown: Yes Mother Family Medical History: Cancer Additional Family Medical History / Comment(s): Bladder cancer. Sister(s) Family Medical History: Cancer Additional Family Medical History / Comment(s): 2 sisters had cancer. one with breast one with uterine Medications and Allergies Home Medications Medication Instructions Recorded Confirmed Type Cetirizine HCl [Zyrtec] 10 mg PO DAILY 11/25/17 09/23/24 History Ibuprofen [Advil] 800 mg PO Q6HR PRN 11/25/17 09/23/24 History busPIRone HCL 35 mg PO BID 11/25/17 09/23/24 History cycloSPORINE 0.05% OPHTH SOLN 1 applicator BOTH EYES Q12H 11/25/17 09/23/24 History [Restasis] Baclofen 10 mg PO HS 09/19/22 09/23/24 History Celecoxib [CeleBREX] 200 mg PO DAILY 09/19/22 09/23/24 History DULoxetine HCL [Cymbalta] 60 mg PO HS 09/19/22 09/23/24 History Pregabalin [Lyrica] 150 mg PO DAILY 09/19/22 09/23/24 History QUEtiapine [SEROquel] 100 mg PO HS 09/19/22 09/23/24 History Triamterene/Hydrochlorothiazid 1 each PO DAILY 09/19/22 09/23/24 History [Triamterene-Hctz 37.5-25 mg Cp] Semaglutide [Ozempic] 5 mg SQ TU 06/18/23 09/23/24 History Albuterol Inhaler [Ventolin Hfa 1 - 2 puff INHALATION Q6H PRN 09/17/24 09/23/24 History Inhaler] oxyCODONE HCL [OxyIR] 5 mg PO Q6H PRN 3 Days #20 tab 09/20/24 09/23/24 Rx Allergies Allergy/AdvReac Type Severity Reaction Status Date / Time No Known Allergies Allergy Verified 09/23/24 11:33 Physical Exam Vitals: Vital Signs Temp Pulse Pulse Resp BP BP Pulse Ox 09/21/24 11:00 88 16 126/77 100 09/21/24 03:22 91 18 106/74 100 09/20/24 20:20 102 H 18 111/78 100 09/20/24 19:50 101 H 18 103/69 100 09/20/24 19:20 102 H 18 121/82 100 09/20/24 19:05 93 18 117/81 100 09/20/24 18:50 89 16 129/86 100 09/20/24 18:35 97.9 F 87 16 130/92 97 09/20/24 18:15 89 19 131/89 98 09/20/24 18:00 86 17 127/88 94 L 09/20/24 17:45 103 H 18 129/104 95 09/20/24 17:30 117 H 17 135/110 97 09/20/24 17:15 115 H 17 129/101 98 09/20/24 17:00 115 H 21 120/87 100 09/20/24 16:44 117 H 20 130/95 96 09/20/24 16:29 97.0 F L 112 H 16 127/96 98 Intake and Output 09/20/24 09/21/24 09/21/24 22:59 06:59 14:59 Intake Total 600 Output Total 100 25 Balance 500 -25 Intake: IV 600 Output: Drainage 25 Left Chest 20 Right Chest 5 Estimated Blood Loss 100 Other: Voiding Method Indwelling Catheter # Voids 0 PHYSICAL EXAMINATION: Patient is lying in the bed comfortably, no acute distress, awake alert and oriented.. Morbid obese. HEENT: Normocephalic. Neck is supple. Pupils reactive. Nostrils clear. Oral cavity is moist. Neck reveals no JVD, carotid bruits, or thyromegaly. CHEST EXAMINATION: Trachea is central. Symmetrical expansion. Surgical site is bandaged. Bibasilar diminished sounds. Lung love clear to auscultation and percussion. CARDIAC: Normal S1, S2 with no gallops. No murmurs ABDOMEN: Soft. Bowel sounds normal. No organomegaly. No abdominal bruits. Extremities: reveal no edema. No clubbing or cyanosis Neurologically awake, alert, oriented x3 with well-coordinated movements. No focal deficits noted Skin: No rash or skin lesions. Psychiatric: Coperative. Nonsuicidal Musculoskeletal: No joint swelling or deformity. Normal range of motion. Results CBC & Chem 7: 09/21/24 05:25 Labs: Abnormal Lab Results - Last 24 Hours (Table) 09/20/24 09/20/24 09/21/24 Range/Units 14:33 16:40 05:25 RBC 3.87 L (4.10-5.20) 10*6/uL Hgb 10.4 L (12.0-15.0) g/dL Hct 33.6 L (37.2-46.3) % MCH 26.9 L (27.0-32.0) pg MCHC 31.0 L (32.0-37.0) g/dL Eosinophils # 0.01 L (0.04-0.35) 10*3/uL POC Glucose (mg/dL) 165 H 143 H (70-110) mg/dL Assessment and Plan Assessment: Status post incision revision of the skin and subcutaneous tissue and removal of right breast implant. Postoperative day 1 Hypertension controlled Hyperlipidemia Diabetes type 2 patient is on Ozempic Obstructive sleep apnea not on CPAP at home COPD Prior history of smoking History of right breast invasive ductal carcinoma s/p surgery and chemotherapy Morbid obesity BMI 53.9 Anxiety/depression. DVT prophylaxis Plan: Patient will be continued on pain management, bowel regimen and encourage incentive spirometry. Blood pressure medications on hold. Can be started back on triamterene/hydrochlorothiazide upon discharge. Patient will be continued on home medications and follow-up closely. Follow-up with primary care physician next 3 to 5 days. Further recommendations based on the clinical course. Thank you kindly for your consult.
--- NOTE | 2024-09-28 09:01 | MM ---
Pathology Description: Location: 8 o'clock. Needle Type: 5 cm Kopan The procedure of needle localization with wire placement and than surgical excision was explained to the patient. Benefits, alternatives, and risks were discussed. An informed consent was then obtained. Ultrasound guidance was chosen. The overlying skin was prepped and draped in usual sterile fashion. Lidocaine buffered with bicarbonate was used as anesthetic into the skin and subcutaneous tissue up to the level of area of concern. A 5 cm needle was used. It was placed via ultrasound guidance targeting biopsy clip. At this 1 cc of methylene blue was injected as requested by ordering surgeon by myself. At this point, wire was placed and the needle was withdrawn. The wire was fixed to patient's skin. The patient tolerated the procedure well without any immediate complication. The patient was kept in the radiology department for short stay after the procedure and then taken to surgery for surgical excision. Targeted biopsy clip and wire are identified in specimen mammogram. The patient was kept in hospital for short stay after the procedure and then discharged home in stable condition. Impression: Successful, uncomplicated needle localization with wire placement and surgical excision of targeted biopsy clip in the right breast, full pathology results to follow. [facility], , 09/20/2024 3:32 PM. Pathology Results: Result: Malignant, Invasive ductal carcinoma. Pathology and radiology were reviewed. Findings are concordant. A. RIGHT BREAST REDUNDANT TISSUE: Multifocal invasive high grade ductal carcinoma in a background of fibrosis/scar, histiocytes and previous biopsy site. Two of five lymph nodes positive for metastatic ductal mammary carcinoma. Histiocyte lined fibrous capsule with fibrosis/scar. See note. B. ADDITIONAL REDUNDANT TISSUE, RIGHT BREAST: Focal invasive high grade ductal carcinoma in a background of fibrosis/scar with fat necrosis. See note. C. REDUNDANT SKIN AND TISSUE, LEFT BREAST: Benign skin and breast tissue with extensive fibrosis/scar. Two benign lymph nodes. Overall Assessment: Malignant Management: Surgical Consultation of the right breast. Electronically signed and approved by: Herrera Jacobson M.D.
== END 2024-09-21 18:43 | disposition home or self-care (01) ==
LOC: OR 06:42 → 4FBP 16:25 → OR 09-21 18:43
PROVIDERS: ATTEND Surgery
DX: C50.911 Malignant neoplasm of unspecified site of right female breast (principal); L98.7 Excessive and redundant skin and subcutaneous tissue; I10 Essential (primary) hypertension; J43.9 Emphysema, unspecified; E78.5 Hyperlipidemia, unspecified; E11.9 Type 2 diabetes mellitus without complications; E66.01 Morbid (severe) obesity due to excess calories; M79.7 Fibromyalgia; M06.9 Rheumatoid arthritis, unspecified; F32.A Depression, unspecified; F41.9 Anxiety disorder, unspecified; G47.33 Obstructive sleep apnea (adult) (pediatric); Z68.43 Body mass index [BMI] 50.0-59.9, adult; Z90.13 Acquired absence of bilateral breasts and nipples; Z90.710 Acquired absence of both cervix and uterus; Z87.891 Personal history of nicotine dependence; Z85.3 Personal history of malignant neoplasm of breast; Z79.621 Long term (current) use of calcineurin inhibitor; Z79.1 Long term (current) use of non-steroidal anti-inflammatories (NSAID); Z79.85 Long-term (current) use of injectable non-insulin antidiabetic drugs; Z98.890 Other specified postprocedural states; Z79.899 Other long term (current) drug therapy
CPT/HCPCS: 15839; 88305; 85025; 88342; 88307; 88341; 76098; 19285; C1819; J2250; J0330; J1644 ×2; J1100; J0690; J2405; J2003; J3010; J1171 ×3; J2704; Q9968; J2371; J1920; J1805; J1790

== ENCOUNTER → 2024-09-23 | Outpatient (CLI) | payer MEDICARE, OTHER ==
--- NOTE | 2024-09-23 11:15 | P.BCPO ---
Progress Note - Text Progress Note Date: 09/23/24 Renee status post bilateral mastectomy scar revision with excision of skin, and removal of implant right chest wall. The surgery was performed on Friday. She is doing well. Her VIMAL drains are right side approximately 190 cc, left side approximately 140 cc. Lungs: Clear Heart: Regular rate and rhythm Incision right and left clean and dry, no evidence of seroma VIMAL sites clean and dry Impression/plan: Patient doing well Patient's sister taught how to change dressing Prescriptions for dressing supplies given to patient I will be gone for 2 weeks. The patient is aware of this. She is going to follow-up during this time with Dr. Ahmadi in a week and a half. I will see her again as soon as I am back. She will follow-up with him sooner any questions or concerns If patient has any questions or concerns during this time she will call Dr. Ahmadi Follow-up with me in 2 weeks Post Op Education - Post Op Education Post Op Education Provided Date: 09/23/24 - Functional Assessment Performed?: Yes (Arm abduction past)
[2024-09-23 11:37] VITALS: BP 112/82; PULSE 103; RESP 18; TEMP 98.7
== END ==
LOC: WWCWWP 10:58
PROVIDERS: ATTEND Surgery
DX: Z98.890 Other specified postprocedural states (principal); F12.90 Cannabis use, unspecified, uncomplicated; F17.200 Nicotine dependence, unspecified, uncomplicated

== ENCOUNTER → 2024-10-13 | Outpatient (CLI) | payer MEDICARE, OTHER ==
[2024-10-13 13:26] VITALS: BP 93/61; PULSE 127; RESP 18; TEMP 97.9
--- NOTE | 2024-10-13 13:31 | P.PN ---
Subjective Progress Note Date: 10/13/24 Principal diagnosis: post op visit Progress Note - Text Progress Note Date: 10-13-24 Renee status post bilateral mastectomy scar revision with excision of skin, and removal of implant right chest wall. The surgery was performed on Friday. She is doing well. Her VIMAL drains were removed approximately a week ago. Pathology revealed in the right breast multifocal invasive high-grade ductal carcinoma in a background of fibrosis/scar. 2 of 5 lymph nodes were positive for metastatic ductal Carcinoma. Additional redundant tissue from the right breast revealed focal invasive high-grade ductal carcinoma. Redundant skin and left breast tissue revealed benign skin and breast tissue with 2 benign lymph nodes. Lungs: Clear Heart: Regular rate and rhythm Incision right and left clean and dry, no evidence of seroma VIMAL sites clean and dry Impression/plan: Patient doing well Patient's sister taught how to change dressing To follow up with radiation oncology and medical oncology follow up here in three months, or sooner if any questions or concerns Copy of pathology report given to patient Additional CC's: Moo Daily
== END ==
LOC: WWCWWP 12:54
PROVIDERS: ATTEND Surgery
DX: D05.11 Intraductal carcinoma in situ of right breast (principal); F12.90 Cannabis use, unspecified, uncomplicated; F17.200 Nicotine dependence, unspecified, uncomplicated; Z98.890 Other specified postprocedural states